=== PATIENT | male | born 1955 | race Caucasian/White ===

== ENCOUNTER 2018-10-06 14:02 | Emergency (ER) | payer MEDICARE, MEDICAID, SELFPAY ==
[2018-10-06] VITALS (10 sets, daily range): BP systolic 106–117; BP diastolic 73–78; PULSE 70–83; RESP 8–18; TEMP 37.1; O2SAT 93–97
--- NOTE | 2018-10-06 14:12 | DI.RAD_ITS ---
SYMPTOM/DIAGNOSIS: LT ANTERIOR RIB PAIN AFTER FALL PA AND LATERAL CHEST, LEFT RIBS: Comparison is made with portable chest dated 05 March 2018. The heart is enlarged, unchanged. An hiatal hernia is again noted. The exam is somewhat limited by patient positioning. A BB marker was placed over the lower left ribs in the area of the patient's pain. No fractures are identified. The lungs are grossly clear. There is no evidence of a pneumothorax. IMPRESSION: No acute abnormality.
--- NOTE | 2018-10-06 14:13 | W.ED.GENAD ---
Discharge Plan Disposition Patient Disposition: HOME Condition: Improving Discharge Details Chief Complaint: Chest Pain Clinical Impression: Chest wall muscle strain Primary Care Provider: Mao Lance ED Provider: Michael Collins Home Meds and New Rx's Prescriptions: Continue propranolol 20 MG tablet 20 mg PO BID Qty: 60 RF: 0 blood sugar diagnostic [OneTouch Ultra Test] 1 EACH strip 1 ea Miscellaneous DAILY Qty: 100 RF: 4 lancets [OneTouch UltraSoft Lancets] 1 EACH misc 1 ea Miscellaneous DAILY Qty: 100 RF: 4 clotrimazole-betamethasone [Lotrisone] 45 GM cream 1 aubrie Topical BID RF: 0 ibuprofen 200 MG tablet 200 mg PO Q6H PRN RF: 0 docusate sodium [Colace] 100 MG capsule 100 mg PO DAILY RF: 0 nystatin (bulk) 1 EACH powder Topical QID Qty: 60 RF: 2 blood-glucose meter [OneTouch Ultra2] 1 EACH kit 1 ea Miscellaneous DAILY Qty: 1 RF: 0 lisinopril 10 MG tablet 0.5 tab PO DAILY Qty: 45 RF: 4 Discharge Instructions Instructions: Muscle Strain (ED) Additional Instructions: Home to rest today. Continue your regular medications. May apply ice to area comfort comfort Return for any other acute Medical Decision Making 63-year-old male presents via EMS from home. He states to me that he was carrying out his trash, slipped on some slippery stairs, did not fall, but subsequent developed brief chest discomfort for which she called EMS. Pain resolved by the time of arrival. Patient's vital signs unremarkable. He has mild reproducible chest wall pain. Differential diagnosis includes strain, rib injury, less likely acute coronary disease. Patient placed on a cardiac exercise physiologist, IV access established, he was referred for chest x-ray and laboratory testing. Diagnostics tests are unremarkable. Patients pain improved and he is without further discomfort. XR without underlying fracture. Will discharge to home. Consistent with mild muscular strain of chest wall. Return precautions discussed. Lab Data Lab results reviewed: Yes I reviewed the patient's lab results. Laboratory Results - last 24 hr 10/06/18 10/06/18 14:28 14:28 WBC 7.38 RBC 4.72 Hgb 15.2 Hct 43.8 MCV 92.8 MCH 32.2 MCHC 34.7 RDW 13.2 Plt Count 204 MPV 9.5 Immature Gran % 0.3 Neutrophils % 62.4 Lymphocytes % 25.7 Monocytes % 9.6 Eosinophils % 1.6 Basophils % 0.4 Absolute Neutrophils 4.60 Absolute Lymphocytes 1.90 Absolute Monocytes 0.71 H Absolute Eosinophils 0.12 Absolute Basophils 0.03 Sodium 138 Potassium 3.8 Chloride 103 Carbon Dioxide 25.2 Anion Gap 9.8 BUN 16 Creatinine 0.85 Estimated GFR/1.73 m2 >= 60.00 Glucose 132 H Calcium 8.9 Total Bilirubin 0.5 AST 21 ALT 40 Alkaline Phosphatase 88 Troponin I < 0.02 Total Protein 7.1 Albumin 3.3 L ECG Data Attestation: I personally reviewed and interpreted this ECG (s) as follows: Interpretation: Normal sinus rhythm, rate of 76, no ST segment elevation HPI General Mode of arrival: EMS. Date/Time Provider Initiated Documentation: 10/06/18 14:03. Limitations to Documentation: no limitations. Information obtained by: patient and EMS. History of Present Illness 63 year old M presents to the emergency department with the chief complaint of Chest pain after slip while carrying trash, described as moderate, Quality is described as aching, and is localized to the chest and left. Patient reports no radiation. Patient started experiencing this minute(s) and it has been now resolved. No relieving factors improve symptom(s), No exacerbating factors reported . Patient notes no other symptoms.. Patient did receive the following treatments prior to arrival, none Related Data Home Medications Medication Instructions Recorded Confirmed propranolol 20 mg PO BID #60 tab-cap 04/23/13 10/06/18 blood sugar diagnostic [OneTouch #100 strip 10/25/15 Ultra Test] lancets [Ostendo TechnologiesTouch UltraSoft #100 ea 10/25/15 Lancets] clotrimazole-betamethasone 1 aubrie TOPICAL BID 02/25/16 12/19/16 [Lotrisone] docusate sodium [Colace] 100 mg PO DAILY 02/25/16 10/06/18 ibuprofen 200 mg PO Q6H PRN 02/25/16 10/06/18 nystatin (bulk) 0 TOPICAL QID #60 g 05/04/17 blood-glucose meter [OneTouch #1 kit 09/13/17 Ultra2] lisinopril 0.5 tab PO DAILY #45 tab 03/07/18 10/06/18 Previous Rx's Medication Instructions Recorded blood-glucose meter [OneTouch #1 kit 09/13/17 Ultra2] lisinopril 0.5 tab PO DAILY #45 tab 03/07/18 Allergies Allergy/AdvReac Type Severity Reaction Status Date / Time venom-honey bee Allergy Intermediate Anaphylaxsi Unverified 05/21/18 14:54 s guaifenesin [From Robitussin] Allergy unknkown Unverified 05/21/18 14:54 influenza virus vaccine, Allergy unknown Unverified 05/21/18 14:54 specific [influenza virus vacc,specific] aspirin AdvReac Intermediate Nausea Unverified 05/21/18 14:54 chlorpheniramine AdvReac Intermediate NAUSEA Unverified 05/21/18 14:54 dextromethorphan AdvReac Intermediate NAUSEA Unverified 05/21/18 14:54 diphenhydramine AdvReac Intermediate NAUSEA Unverified 05/21/18 14:54 phenylephrine AdvReac Intermediate NAUSEA Unverified 05/21/18 14:54 pseudoephedrine AdvReac Intermediate NAUSEA Unverified 05/21/18 14:54 General Stated Complaint: Chest Pain SHONDA: 3 Review of Systems Review of Systems 6 systems reviewed and otherwise negative PFSH Family History Mother Essential hypertension Heart disease Father Diabetes Sister Personal history of malignant neoplasm FAMILY HISTORY Personal history of malignant neoplasm Social History Smoking/Tobacco Use Status: Former Tobacco Use Exam Narrative Exam Narrative: GEN: awake, alert, oriented 3. Pleasant, well groomed, interactive. HEAD: Normocephalic, atraumatic ENT: Mucous membranes moist, oropharynx unremarkable, External ear exam unremarkable EYES: PERRL, EOMI NECK: Full ROM, no LAURENT, no menigismus CHEST/RESP: Minimal tenderness left anterior chest wall to palpation; clear to auscultation bilateral, no wheeze/rhonchi/rales. CARDIOVASCULAR: RRR, no murmur, rub latrice. 2+ Rad pulse bilateral ABDOMEN: Soft, nontender, no mass. +Bowel sounds EXT: Full ROM, no edema, no rash Neuro: Grossly normal neurologic exam, conversant, interactive. Psych: Speech fluent, thoughts congruent, affect normal Course Vital Signs Temperature 37.1 C 10/06/18 14:01 Pulse 70 10/06/18 14:01 Respiratory Rate 14 10/06/18 14:01 Blood Pressure 111/75 10/06/18 14:01 Pulse Oximetry 97 10/06/18 14:01 Temperature 37.1 C 10/06/18 14:01 Temperature Source Temporal Artery Scan 10/06/18 14:01 Pulse 70 10/06/18 14:01 Respiratory Rate 14 10/06/18 14:01 Respiratory Effort 10/06/18 14:04 Blood Pressure 111/75 10/06/18 14:01 Blood Pressure Position Supine 10/06/18 14:01 Pulse Oximetry 97 10/06/18 14:01 Oxygen Delivery Method Room Air 10/06/18 14:01 Oxygen Flow Rate 0 10/06/18 14:01 Pain Level 9 10/06/18 14:01
--- NOTE | 2018-10-06 14:16 | ED.GENADUL_ITS ---
Discharge Plan Disposition Patient Disposition: HOME Condition: Improving Discharge Details Chief Complaint: Chest Pain Clinical Impression: Chest wall muscle strain Primary Care Provider: Mao Lance ED Provider: Michael Collins Home Meds and New Rx's Prescriptions: Continue propranolol 20 MG tablet 20 mg PO BID Qty: 60 RF: 0 blood sugar diagnostic [OneTouch Ultra Test] 1 EACH strip 1 ea Miscellaneous DAILY Qty: 100 RF: 4 lancets [OneTouch UltraSoft Lancets] 1 EACH misc 1 ea Miscellaneous DAILY Qty: 100 RF: 4 clotrimazole-betamethasone [Lotrisone] 45 GM cream 1 aubrie Topical BID RF: 0 ibuprofen 200 MG tablet 200 mg PO Q6H PRN RF: 0 docusate sodium [Colace] 100 MG capsule 100 mg PO DAILY RF: 0 nystatin (bulk) 1 EACH powder Topical QID Qty: 60 RF: 2 blood-glucose meter [OneTouch Ultra2] 1 EACH kit 1 ea Miscellaneous DAILY Qty: 1 RF: 0 lisinopril 10 MG tablet 0.5 tab PO DAILY Qty: 45 RF: 4 Discharge Instructions Instructions: Muscle Strain (ED) Additional Instructions: Home to rest today. Continue your regular medications. May apply ice to area comfort comfort Return for any other acute Medical Decision Making 63-year-old male presents via EMS from home. He states to me that he was carrying out his trash, slipped on some slippery stairs, did not fall, but subsequent developed brief chest discomfort for which she called EMS. Pain resolved by the time of arrival. Patient's vital signs unremarkable. He has mild reproducible chest wall pain. Differential diagnosis includes strain, rib injury, less likely acute coronary disease. Patient placed on a bar tacker, IV access established, he was referred for chest x-ray and laboratory testing. Diagnostics tests are unremarkable. Patients pain improved and he is without further discomfort. XR without underlying fracture. Will discharge to home. Consistent with mild muscular strain of chest wall. Return precautions discussed. Lab Data Lab results reviewed: Yes I reviewed the patient's lab results. Laboratory Results - last 24 hr 10/06/18 10/06/18 14:28 14:28 WBC 7.38 RBC 4.72 Hgb 15.2 Hct 43.8 MCV 92.8 MCH 32.2 MCHC 34.7 RDW 13.2 Plt Count 204 MPV 9.5 Immature Gran % 0.3 Neutrophils % 62.4 Lymphocytes % 25.7 Monocytes % 9.6 Eosinophils % 1.6 Basophils % 0.4 Absolute Neutrophils 4.60 Absolute Lymphocytes 1.90 Absolute Monocytes 0.71 H Absolute Eosinophils 0.12 Absolute Basophils 0.03 Sodium 138 Potassium 3.8 Chloride 103 Carbon Dioxide 25.2 Anion Gap 9.8 BUN 16 Creatinine 0.85 Estimated GFR/1.73 m2 >= 60.00 Glucose 132 H Calcium 8.9 Total Bilirubin 0.5 AST 21 ALT 40 Alkaline Phosphatase 88 Troponin I < 0.02 Total Protein 7.1 Albumin 3.3 L ECG Data Attestation: I personally reviewed and interpreted this ECG (s) as follows: Interpretation: Normal sinus rhythm, rate of 76, no ST segment elevation HPI General Mode of arrival: EMS . Date/Time Provider Initiated Documentation: 10/06/18 14:03 . Limitations to Documentation: no limitations . Information obtained by: patient and EMS . History of Present Illness 63 year old M presents to the emergency department with the chief complaint of Chest pain after slip while carrying trash, described as moderate, Quality is described as aching, and is localized to the chest and left. Patient reports no radiation. Patient started experiencing this minute(s) and it has been now resolved. No relieving factors improve symptom(s), No exacerbating factors reported . Patient notes no other symptoms.. Patient did receive the following treatments prior to arrival, none Related Data Home Medications Medication Instructions Recorded Confirmed propranolol 20 mg PO BID #60 tab-cap 04/23/13 10/06/18 blood sugar diagnostic [OneTouch #100 strip 10/25/15 Ultra Test] lancets [[employer] TechnologyTouch UltraSoft #100 ea 10/25/15 Lancets] clotrimazole-betamethasone 1 aubrie TOPICAL BID 02/25/16 12/19/16 [Lotrisone] docusate sodium [Colace] 100 mg PO DAILY 02/25/16 10/06/18 ibuprofen 200 mg PO Q6H PRN 02/25/16 10/06/18 nystatin (bulk) 0 TOPICAL QID #60 g 05/04/17 blood-glucose meter [OneTouch #1 kit 09/13/17 Ultra2] lisinopril 0.5 tab PO DAILY #45 tab 03/07/18 10/06/18 Previous Rx's Medication Instructions Recorded blood-glucose meter [OneTouch #1 kit 09/13/17 Ultra2] lisinopril 0.5 tab PO DAILY #45 tab 03/07/18 Allergies Allergy/AdvReac Type Severity Reaction Status Date / Time venom-honey bee Allergy Intermediate Anaphylaxsi Unverified 05/21/18 14:54 s guaifenesin [From Robitussin] Allergy unknkown Unverified 05/21/18 14:54 influenza virus vaccine, Allergy unknown Unverified 05/21/18 14:54 specific [influenza virus vacc,specific] aspirin AdvReac Intermediate Nausea Unverified 05/21/18 14:54 chlorpheniramine AdvReac Intermediate NAUSEA Unverified 05/21/18 14:54 dextromethorphan AdvReac Intermediate NAUSEA Unverified 05/21/18 14:54 diphenhydramine AdvReac Intermediate NAUSEA Unverified 05/21/18 14:54 phenylephrine AdvReac Intermediate NAUSEA Unverified 05/21/18 14:54 pseudoephedrine AdvReac Intermediate NAUSEA Unverified 05/21/18 14:54 General Stated Complaint: Chest Pain SHONDA: 3 Review of Systems Review of Systems 6 systems reviewed and otherwise negative PFSH Family History Mother Essential hypertension Heart disease Father Diabetes Sister Personal history of malignant neoplasm FAMILY HISTORY Personal history of malignant neoplasm Social History Smoking/Tobacco Use Status: Former Tobacco Use Exam Narrative Exam Narrative: GEN: awake, alert, oriented 3. Pleasant, well groomed, interactive. HEAD: Normocephalic, atraumatic ENT: Mucous membranes moist, oropharynx unremarkable, External ear exam unremarkable EYES: PERRL, EOMI NECK: Full ROM, no LAURENT, no menigismus CHEST/RESP: Minimal tenderness left anterior chest wall to palpation; clear to auscultation bilateral, no wheeze/rhonchi/rales. CARDIOVASCULAR: RRR, no murmur, rub latrice. 2+ Rad pulse bilateral ABDOMEN: Soft, nontender, no mass. +Bowel sounds EXT: Full ROM, no edema, no rash Neuro: Grossly normal neurologic exam, conversant, interactive. Psych: Speech fluent, thoughts congruent, affect normal Course Vital Signs Temperature 37.1 C 10/06/18 14:01 Pulse 70 10/06/18 14:01 Respiratory Rate 14 10/06/18 14:01 Blood Pressure 111/75 10/06/18 14:01 Pulse Oximetry 97 10/06/18 14:01 Temperature 37.1 C 10/06/18 14:01 Temperature Source Temporal Artery Scan 10/06/18 14:01 Pulse 70 10/06/18 14:01 Respiratory Rate 14 10/06/18 14:01 Respiratory Effort 10/06/18 14:04 Blood Pressure 111/75 10/06/18 14:01 Blood Pressure Position Supine 10/06/18 14:01 Pulse Oximetry 97 10/06/18 14:01 Oxygen Delivery Method Room Air 10/06/18 14:01 Oxygen Flow Rate 0 10/06/18 14:01 Pain Level 9 10/06/18 14:01
[2018-10-06 14:38] LABS: Abs Immature Grans 0.02 k/cumm (0.0-0.09); Absolute Basophil Count 0.03 k/cumm (0.0-0.2); Absolute Eosinophil Count 0.12 k/cumm (0.0-0.7); Absolute Monocyte Count 0.71 k/cumm (0.11-0.7); Basophils % 0.4; Eosinophils % 1.6; HCT 43.8 % (40.0-50.0); HGB 15.2 g/dL (13.5-17.5); Immature Grans % 0.3; Lymphocytes % 25.7; Mean Corp. HGB Concentration 34.7 g/dL (32.0-36.0); Mean Corpuscular Hemoglobin 32.2 pg (27.0-33.0); Mean Corpuscular Volume 92.8 fL (80-95); Mean Platelet Volume 9.5 fL (8.0-11.0); Monocytes % 9.6; Neutrophils % 62.4; Platelet Count 204 x1000/uL (130-400); RBC 4.72 m/cumm (4.50-6.00); RBC Distribution Width 13.2 % (11.8-14.1); White Blood Cell Count 7.38 k/cumm (4.4-10.8)
[2018-10-06 14:51] LABS: ALT 40 U/L (12-78); AST 21 U/L (15-37); Albumin 3.3 g/dL (3.4-5.0); Alkaline Phosphatase 88 U/L (46-116); Anion Gap 9.8 mmol/L (3-11); BUN 16 mg/dL (7-18); Bilirubin, Total 0.5 mg/dL (0.2-1.0); CO2 25.2 mmol/L (21.0-32.0); CREATININE 0.85 mg/dL (0.70-1.30); Calcium 8.9 mg/dL (8.5-10.1); Chloride 103 mmol/L (98-107); Glucose 132 mg/dL (70-100); Potassium 3.8 mmol/L (3.5-5.1); Sodium 138 mmol/L (136-145); Total Protein 7.1 g/dL (6.4-8.2)
[2018-10-06 14:52] LABS: Troponin I < 0.02 ng/mL (0.00-0.06)
--- NOTE | 2018-10-06 15:12 | DI.VRAD_ITS ---
EXAM: XR Left Ribs, 2 Views EXAM DATE/TIME: 10/06/2018 2:14 PM CLINICAL HISTORY: 63 years old, male; Pain; Other: Anterior rib; Chest wall pain; Left; Patient HX: Per PT: Fell down 2 stairs; L anterior lower rib pain TECHNIQUE: XR Left ribs 2 views. COMPARISON: [facility] PORTABLE CHEST ONE VIEW 03/05/2018 4:35 PM FINDINGS: No displaced rib fractures. No evidence of pneumothorax. Left costophrenic angle sharp. IMPRESSION: Unremarkable exam. EXAM: XR Chest, 2 Views EXAM DATE/TIME: 10/06/2018 2:14 PM CLINICAL HISTORY: 63 years old, male; Pain; Other: Anterior rib; Chest wall pain; Left; Patient HX: Per PT: Fell down 2 stairs; L anterior lower rib pain TECHNIQUE: XR of the chest, 2 views. COMPARISON: [facility] PORTABLE CHEST ONE VIEW 03/05/2018 4:35 PM FINDINGS: Mild cardiomegaly. Tortuous thoracic aorta. No evidence of pneumothorax. Right-sided rotator cuff disease. IMPRESSION: No evidence of acute cardiopulmonary disease. Dictated and Authenticated by: Steve Rudd MD. Ordering:PATRIZIA JEAN MD
== END 2018-10-06 15:43 | disposition home or self-care (01) ==
LOC: ER 15:47
PROVIDERS: Emergency Provider Emergency Medicine; PCP Family Medicine
DX: S29.011A Strain of muscle and tendon of front wall of thorax, initial encounter (principal); X50.9XXA Other and unspecified overexertion or strenuous movements or postures, initial encounter; E11.9 Type 2 diabetes mellitus without complications; I10 Essential (primary) hypertension
CPT/HCPCS: 36415; 80053; 93005; 99284; 71046; 71100; 84484; 85025; 93010

== ENCOUNTER 2018-12-19 09:50 | Outpatient (CLI) | payer MEDICARE, MEDICAID, SELFPAY ==
[2018-12-19 12:09] LABS: Hemoglobin A1C 7.1 % (4.5-6.2)
== END 2018-12-19 10:10 ==
PROVIDERS: PCP Family Medicine; Visit Provider Family Medicine
DX: E11.9 Type 2 diabetes mellitus without complications (principal)
CPT/HCPCS: 36415; 83036

== ENCOUNTER 2019-05-27 10:02 | Outpatient (CLI) | payer MEDICARE, MEDICAID, SELFPAY ==
[2019-05-27 10:49] LABS: Anion Gap 8.8 mmol/L (3-11); BUN 15 mg/dL (7-18); CO2 28.2 mmol/L (21.0-32.0); CREATININE 0.77 mg/dL (0.70-1.30); Calcium 9.1 mg/dL (8.5-10.1); Chloride 105 mmol/L (98-107); Glucose 172 mg/dL (70-100); Sodium 142 mmol/L (136-145)
== END 2019-05-27 10:22 ==
PROVIDERS: PCP Family Medicine; Visit Provider Family Medicine
DX: R63.1 Polydipsia (principal)
CPT/HCPCS: 36415; 80048

== ENCOUNTER 2019-08-10 16:35 | Emergency (ER) | payer MEDICARE, MEDICAID, SELFPAY ==
[2019-08-10] VITALS (18 sets, daily range): BP systolic 89–125; BP diastolic 58–63; PULSE 78–92; RESP 17–34; TEMP 36.9–37; O2SAT 95–98
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
[2019-08-10] MEDS: Normal Saline 1,000 ML 150 ML IV (17:00)
[2019-08-10] MEDS: Normal Saline Flush 10 ML SYR IVP (17:00)
[2019-08-10 17:12] LABS: Abs Immature Grans 0.03 k/cumm (0.0-0.09); Absolute Basophil Count 0.03 k/cumm (0.0-0.2); Absolute Eosinophil Count 0.16 k/cumm (0.0-0.7); Absolute Monocyte Count 0.69 k/cumm (0.11-0.7); Absolute Neutrophil Count 4.66 k/cumm (1.2-6.7); Basophils % 0.4; Eosinophils % 2.1; HCT 43.3 % (40.0-50.0); HGB 14.7 g/dL (13.5-17.5); Immature Grans % 0.4; Lymphocytes % 28.3; Mean Corp. HGB Concentration 33.9 g/dL (32.0-36.0); Mean Corpuscular Hemoglobin 31.7 pg (27.0-33.0); Mean Corpuscular Volume 93.3 fL (80-95); Mean Platelet Volume 9.4 fL (8.0-11.0); Monocytes % 8.9; Neutrophils % 59.9; Platelet Count 230 x1000/uL (130-400); RBC 4.64 m/cumm (4.50-6.00); RBC Distribution Width 13.4 % (11.8-14.1); White Blood Cell Count 7.77 k/cumm (4.4-10.8)
[2019-08-10 17:28] LABS: ALT 41 U/L (16-63); AST 24 U/L (15-37); Albumin 3.5 g/dL (3.4-5.0); Alkaline Phosphatase 85 U/L (46-116); Anion Gap 11.4 mmol/L (3-11); BUN 15 mg/dL (7-18); Bilirubin, Total 0.6 mg/dL (0.2-1.0); CO2 27.6 mmol/L (21.0-32.0); CREATININE 0.99 mg/dL (0.70-1.30); Calcium 8.9 mg/dL (8.5-10.1); Chloride 101 mmol/L (98-107); Glucose 188 mg/dL (70-100); Magnesium 1.7 mg/dL (1.8-2.4); Potassium 3.6 mmol/L (3.5-5.1); Sodium 140 mmol/L (136-145); Total Protein 7.3 g/dL (6.4-8.2)
[2019-08-10 17:29] LABS: Troponin I < 0.05 ng/mL (0.00-0.06)
--- NOTE | 2019-08-10 17:40 | DI.CT_ITS ---
EXAM: CT HEAD WO CLINICAL HISTORY: ? passed out. TECHNIQUE: Imaging Protocol: Axial computed tomography images with coronal and sagittal reformatted images were created and reviewed COMPARISON: ABD PELVIS WITH CONTRAST from 08/03/2016 FINDINGS: Ventricles and Extra axial spaces: Normal in size and morphology for the patient's age. Hemorrhage: None. Cerebral parenchyma: Normal. Midline shift: None. Brainstem/Cerebellum: Normal. Calvarium: Normal. Visualized Paranasal sinuses/Mastoids: Clear. IMPRESSION: Normal CT of the head. DATA REPOSITORY: All CT scans at this facility are submitted to the National Radiology Data Registry (NRDR) Dose Index Registry (DIR) with the [employer] (ACR). RADIATION OPTIMIZATION: All CT scans at this facility use at least one of these dose optimization te chniques: automated exposure control; mA and/or kV adjustment per patient size (includes targeted exa ms where dose is matched to clinical indication); or iterative reconstruction.
--- NOTE | 2019-08-10 17:50 | DI.RAD_ITS ---
EXAM: XR CHEST 2V PA LATERAL CLINICAL HISTORY: ? syncope?. TECHNIQUE: 2D digital imaging was performed. COMPARISON: XR ribs LT w PA lat chest from 10/06/2018 FINDINGS: LUNGS: When compared to the prior examination there are increased lung markings in the bases bilatera lly. No focal consolidating infiltrates are present. No pleural effusion or pneumothorax is identif ied. HEART: Cardiomegaly. The pulmonary vasculature is within normal limits. MEDIASTINUM: Normal. OTHER FINDINGS:There is patient motion artifact on the lateral view. Bones: No acute osseous abnormalities present. IMPRESSION: New bilateral basilar interstitial infiltrates. This may represent pulmonary edema, infection, or ch ronic fibrosis.
--- NOTE | 2019-08-10 18:01 | DI.VRAD_ITS ---
PROCEDURE INFORMATION: Exam: CT Head without contrast Exam date and time: 08/10/2019 5:30 PM Clinical history: 63 years old, male; Other: ? Passed out TECHNIQUE: Imaging protocol: Computed tomography of the head without contrast. Radiation optimization: All CT scans at this facility use at least one of these dose optimization techniques: automated exposure control; mA and/or kV adjustment per patient size (includes targeted exams where dose is matched to clinical indication); or iterative reconstruction. COMPARISON: No relevant prior studies available. FINDINGS: Brain: Normal. No hemorrhage. Unremarkable white matter. No mass effect. Ventricles: Normal. No ventriculomegaly. Bones/joints: Unremarkable. No acute fracture. Sinuses: Visualized sinuses are unremarkable. No fluid levels. Mastoid air cells: Visualized mastoid air cells are well aerated. Soft tissues: Unremarkable. IMPRESSION: No acute intracranial abnormality. Dictated and Authenticated by: Theron Fregoso MD. Ordering:PATRIZIA Rodriguez MD
--- NOTE | 2019-08-10 18:02 | DI.VRAD_ITS ---
PROCEDURE INFORMATION: Exam: XR Chest, 2 Views Exam date and time: 08/10/2019 5:37 PM Clinical history: 63 years old, male; Other: ? Syncope? TECHNIQUE: Imaging protocol: XR of the chest Views: 2 views. COMPARISON: SC PORTABLE CHEST ONE VIEW 03/05/2018 4:35 PM FINDINGS: Lungs: Increased interstitial lung markings suggesting edema, infection or fibrotic changes. Pleural space: Unremarkable. No pleural effusion. No pneumothorax. Heart/Mediastinum: Cardiomegaly. Bones/joints: Unremarkable. IMPRESSION: Increased interstitial lung markings suggesting edema, infection or fibrotic changes. Cardiomegaly. Dictated and Authenticated by: Theron Fregoso MD. Ordering:PATRIZIA Rodriguez MD
[2019-08-10 18:34] LABS: NT-proBNP 42 pg/mL
--- NOTE | 2019-08-10 18:44 | NUR.NOTE ---
pt provided with meal tray Nursing Note:
--- NOTE | 2019-08-10 18:50 | NUR.NOTE ---
pt unsure of meds but states they're all the same Nursing Note:
== END 2019-08-10 19:00 | disposition home or self-care (01) ==
PROVIDERS: Emergency Provider Emergency Medicine; PCP Family Medicine
DX: F44.1 Dissociative fugue (principal); I10 Essential (primary) hypertension; E11.42 Type 2 diabetes mellitus with diabetic polyneuropathy
CPT/HCPCS: 36415; 36416; 80053; 82962; 93005; 96360; 96361; 99285; 70450; 71046; 83735; 83880; 84484; 85025; 93010; 99284

== ENCOUNTER 2019-12-09 15:04 | Outpatient (CLI) | payer MEDICARE, MEDICAID, SELFPAY ==
--- NOTE | 2019-12-09 15:26 | DI.RAD_ITS ---
EXAM: XR KNEE RT 3V AP,LAT,MONIKA INDICATION: FELL ON RIGHT KNEE 1 WEEK AGO, S89.91XA INJURY RT LOWER LEG. COMPARISON: No exams were available for comparison TECHNIQUE: 2D digital imaging was performed. FINDINGS: The femorotibial joint spaces are well maintained. There is mild periarticular spurring. There is s ome spurring and irregularity at the articular aspect of the patella. The patella appears normally p ositioned. No joint effusion is seen. IMPRESSION: Mild degenerative changes, greatest at the patellofemoral joint.
== END 2019-12-09 15:24 ==
PROVIDERS: PCP Family Medicine; Visit Provider Family Medicine
DX: M25.561 Pain in right knee (principal); S89.91XA Unspecified injury of right lower leg, initial encounter; M17.11 Unilateral primary osteoarthritis, right knee; W19.XXXA Unspecified fall, initial encounter
CPT/HCPCS: 73562

== ENCOUNTER 2020-08-20 13:39 | Emergency (ER) | payer MEDICARE, MEDICAID, SELFPAY ==
[2020-08-20] VITALS (35 sets, daily range): BP systolic 89–178; BP diastolic 62–135; PULSE 80–159; RESP 11–24; TEMP 36.4; O2SAT 95–100
--- NOTE | 2020-08-20 13:30 | RT.EKG_ITS ---
APPROVED REPORT Exam: Resting ECG Patient Location: E HR:83 bpm ECG Measurements Heart Rate 83 AXIS IL 189 P 20 QRSd 83 QRS 14 QT 364 T 34 QTc 428 Conclusion Sinus rhythm...normal P axis, V-rate 60- 99 Low voltage, precordial leads...precordial leads <1.0mV I have reviewed and interpreted ECG and agree with software generated interpretation.
--- NOTE | 2020-08-20 13:45 | DI.CT_ITS ---
EXAM: CT ABDOMEN PELVIS W CLINICAL HISTORY: RLQ abd pain, diarrhea, weakness,r/o acute process TECHNIQUE: COMPARISON: CT ABD PELVIS WITH CONTRAST from 08/16/2017 FINDINGS: CT examination of the abdomen and pelvis was performed with bolus infusion of 100 cc of Omnipaque 350 . Images obtained through the lung bases are unremarkable. The liver and spleen appear normal. Gallbladder has been surgically removed. No biliary dilatation seen.. Pancreas is unremarkable in appearance. Adrenals appear normal bilaterally. Kidneys appear normal except for small bilateral incidental renal cysts. No nephrolithiasis or hydronephrosis. No ureterolithiasis. There is no evidence of abdominal or pelvic adenopathy. Abdominal aorta is of normal diameter and no major vascular abnormality is seen. Appendix is normal. No evidence diverticulitis or bowel obstruction. No significant abdominal wall hernia seen. Prostate is enlarged and calcified. Urinary bladder unremarkable. Impression: Negative examination of the abdomen and pelvis. RADIATION DOSE DELIVERED: 1,748.39mGy.cm Total DLP 1,748.39mGy.cm Total DLP DATA REPOSITORY: All CT scans at this facility are submitted to the National Radiology Data Registry (NRDR) Dose Index Registry (DIR) with the [employer] (ACR). RADIATION OPTIMIZATION: All CT scans at this facility use at least one of these dose optimization te chniques: automated exposure control; mA and/or kV adjustment per patient size (includes targeted exa ms where dose is matched to clinical indication); or iterative reconstruction.
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
[2020-08-20 14:24] LABS: Abs Immature Grans 0.02 10^3/uL (0.0-0.06); Absolute Basophil Count 0.06 10^3/uL (0.0-0.2); Absolute Lymphocyte Count 1.65 10^3/uL (1.2-3.4); Absolute Monocyte Count 0.59 10^3/uL (0.1-0.8); Absolute Neutrophil Count 4.31 10^3/uL (1.2-6.7); Basophils % 0.9; Eosinophils % 2.9; HCT 45.4 % (40.0-50.0); Immature Grans % 0.3; Lactate 2.3 mmol/L (0.6-1.4); Lymphocytes % 24.2; MCH 30.9 pg (27.0-33.0); MCV 93.6 fL (80-95); MPV 9.5 fL (8.0-11.0); Monocytes % 8.6; Neutrophils % 63.1; Nucleated RBC 0 %; Platelet Count 239 10^3/uL (130-400); RBC 4.85 10^6/uL (4.36-5.78); RDW 13.2 % (11.8-14.1); RDW-SD 45.2 fL; WBC 6.83 10^3/uL (4.4-10.8)
[2020-08-20 14:34] LABS: INR 1.1 (0.9-1.1); Prothrombin Time 10.6 sec (9.3-11.0)
[2020-08-20 14:45] LABS: ALT 40 U/L (16-63); AST 27 U/L (15-37); Albumin 3.1 g/dL (3.4-5.0); Alkaline Phosphatase 96 U/L (46-116); Anion Gap 7.5 mmol/L (3-11); BUN 14 mg/dL (7-18); Bilirubin, Total 0.5 mg/dL (0.2-1.0); CO2 29.5 mmol/L (21.0-32.0); CREATININE 0.89 mg/dL (0.70-1.30); Calcium 9.4 mg/dL (8.5-10.1); Chloride 103 mmol/L (98-107); Glucose 194 mg/dL (74-106); Magnesium 1.9 mg/dL (1.8-2.4); Potassium 4.1 mmol/L (3.5-5.1); Sodium 140 mmol/L (136-145); Total Protein 6.7 g/dL (6.4-8.2); Troponin I < 0.05 ng/mL (<0.06)
[2020-08-20] MEDS: Normal Saline 250 ML IV ×2 (14:52→15:15)
[2020-08-20] MEDS: Normal Saline - Diluent 50 ML VIAL IV (15:35)
--- NOTE | 2020-08-20 15:58 | DI.RAD_ITS ---
EXAM: XR KNEE RT 4V AP,LAT,MONIKA,PAT CLINICAL HISTORY: fall onto R knee, r/o acute fx. TECHNIQUE: 2D digital imaging was performed. COMPARISON: No exams were available for comparison FINDINGS: BONES: There appears to be a deformity of the posterior medial aspect of the patella on the sunrise v iew and nondisplaced fracture cannot be excluded. No bony destructive lesion is seen. Small spurs ar e seen at the posterior patella. JOINTS: The knee is normally aligned. No joint effusion is seen. SOFT TISSUE: Normal. IMPRESSION: Question of a nondisplaced fracture of the posterior medial aspect of the patella as seen on the sunr ise view. A nondisplaced fracture cannot be excluded. Please correlate clinically. DATA REPOSITORY: RADIATION DOSE DELIVERED:
[2020-08-20 16:15] LABS: Bilirubin Negative (Negative); Blood Trace-intact (Negative); Clarity Clear (Clear); Glucose Negative (Negative); Ketones Negative (Negative); Leukocyte Esterase Negative (Negative); Nitrite Negative (Negative); Specific Gravity 1.015 (1.005-1.025); Urobilinogen 0.2 EU/dL (Up TO 0.2); pH 6.5 (5-8)
[2020-08-20 16:34] LABS: Bacteria Negative HPF (Negative); C & S Indicated? No; Crystals Negative HPF (Negative); Epithelial Cells Few HPF (Negative); Mucus Moderate (Negative); WBC Negative HPF (0-5)
[2020-08-20 17:47] LABS: Lactate 1.7 mmol/L (0.6-1.4)
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
== END 2020-08-20 18:45 | disposition home or self-care (01) ==
PROVIDERS: Emergency Provider Physician Assistant; PCP Nurse Practitioner
DX: S80.01XA Contusion of right knee, initial encounter (principal); W19.XXXA Unspecified fall, initial encounter; R53.1 Weakness; R19.7 Diarrhea, unspecified; R10.31 Right lower quadrant pain; E11.9 Type 2 diabetes mellitus without complications; Z79.84 Long term (current) use of oral hypoglycemic drugs; I10 Essential (primary) hypertension
CPT/HCPCS: 36415; 80053; 93005; 96360; 96361; 99285; 73564; 74177; 81003; 81015; 83605; 83735; 84484; 85025; 85610; 85730; 93010

== ENCOUNTER 2020-12-29 03:09 | Outpatient (CLI) | payer MEDICARE, MEDICAID, SELFPAY ==
[2020-12-29 14:47] LABS: COMMENT (LAB VIEW ONLY) 60.56 mg/dL; Microalb ug/mg Crea 3.6 ug/mg Cr
[2020-12-29 14:54] LABS: Cholesterol 217 mg/dL (<200); HDL Cholesterol 30 mg/dL (40-60); Triglyceride 443 mg/dL (<150)
[2020-12-29 15:05] LABS: LDL CHOLESTEROL 139 mg/dL (<100)
[2020-12-29 22:07] LABS: PSA, Screening 0.7 ng/mL (0.0-4.5)
== END 2020-12-29 03:10 | disposition home or self-care (01) ==
LOC: LBO 03:09
PROVIDERS: PCP Nurse Practitioner; Visit Provider Nurse Practitioner
DX: E11.9 Type 2 diabetes mellitus without complications (principal); R32 Unspecified urinary incontinence; Z12.5 Encounter for screening for malignant neoplasm of prostate; Z13.6 Encounter for screening for cardiovascular disorders
CPT/HCPCS: 36415; 80061; 83721; 84153; 82043; 82570

== ENCOUNTER 2021-06-13 14:14 | Outpatient (REF) | payer MEDICARE, MEDICAID, SELFPAY ==
[2021-06-13 17:26] LABS: Potassium 3.7 mmol/L (3.5-5.1)
[2021-06-13 17:49] LABS: Calculated LDL 49 mg/dL (<100); Cholesterol 125 mg/dL (<200); HDL Cholesterol 29 mg/dL (40-60); Triglyceride 238 mg/dL (<150)
--- NOTE | 2021-07-02 16:32 | W.ED.FU ---
Date of service: 07/02/21 Time of Service: 10:32 Follow Up Plan: I was contacted by ever in regards to the patient. The patient had complained of lightheadedness and dizziness and called EMS. EMS upon arrival recommended transfer to the ER, however patient had refused. Patient per EMS was of sound mind to make the decision and showed no signs of intoxication or altered mental status per EMS. I did discuss and asked the EM that the patient know that we are happy to evaluate him anytime here in the ED, the still refused transport
== END 2021-06-13 14:15 | disposition home or self-care (01) ==
LOC: LBN 14:14
PROVIDERS: PCP Nurse Practitioner; Visit Provider Nurse Practitioner
DX: E11.9 Type 2 diabetes mellitus without complications (principal)
CPT/HCPCS: 80061; 82565; 84132

== ENCOUNTER 2022-05-13 15:37 | Emergency (ER) | payer MEDICARE, MEDICAID, SELFPAY ==
[2022-05-13 15:23] VITALS: BP 132/73; PULSE 73; TEMP 36.3; O2SAT 98
--- NOTE | 2022-05-13 15:30 | RT.EKG_ITS ---
APPROVED REPORT Exam: Resting ECG Reason for Exam: Dizzy Patient Location: E HR:72 bpm ECG Measurements Heart Rate 72 AXIS KS 204 P 12 QRSd 84 QRS 19 QT 388 T 34 QTc 425 Conclusion Sinus rhythm...normal P axis, V-rate 60- 99
[2022-05-13 15:31] VITALS: BP 119/71; PULSE 75; RESP 24; TEMP 36.5; O2SAT 98
[2022-05-13 15:38] VITALS: RESP 24
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
[2022-05-13 15:52] LABS: Abs Immature Grans 0.04 10^3/uL (0.0-0.06); Absolute Basophil Count 0.07 10^3/uL (0.0-0.2); Absolute Eosinophil Count 0.19 10^3/uL (0.0-0.7); Absolute Lymphocyte Count 2.58 10^3/uL (1.2-3.4); Absolute Monocyte Count 0.74 10^3/uL (0.1-0.8); Basophils % 0.7; HCT 43.8 % (40.0-50.0); HGB 14.5 g/dL (13.5-17.5); Immature Grans % 0.4; Lymphocytes % 26.8; MCH 31.4 pg (27.0-33.0); MCHC 33.1 % (32.0-36.0); MCV 95 fL (80-95); MPV 9.9 fL (8.0-11.0); Monocytes % 7.7; Neutrophils % 62.4; Platelet Count 231 10^3/uL (130-400); RBC 4.62 10^6/uL (4.36-5.78); RDW 13.2 % (11.8-14.1); RDW-SD 46.3 fL; WBC 9.62 10^3/uL (4.4-10.8)
[2022-05-13 16:09] LABS: ALT 26 U/L (16-63); AST 15 U/L (15-37); Albumin 2.9 g/dL (3.4-5.0); Alkaline Phosphatase 100 U/L (46-116); Anion Gap 7.1 mmol/L (3-11); BUN 18 mg/dL (7-18); Bilirubin, Total 0.3 mg/dL (0.2-1.0); CO2 26.9 mmol/L (21.0-32.0); CREATININE 0.9 mg/dL (0.70-1.30); Calcium 7.8 mg/dL (8.5-10.1); Chloride 105 mmol/L (98-107); Glucose 169 mg/dL (74-106); Magnesium 1.6 mg/dL (1.8-2.4); Potassium 3.6 mmol/L (3.5-5.1); Sodium 139 mmol/L (136-145); Total Protein 6.3 g/dL (6.4-8.2); Troponin I < 50 ng/L (<or=60)
[2022-05-13] MEDS: Magnesium Oxide 400 MG TAB 800 MG PO (16:57)
[2022-05-13 17:03] VITALS: BP 112/60; PULSE 93; RESP 22; TEMP 36.1; O2SAT 98
== END 2022-05-13 17:14 | disposition home or self-care (01) ==
LOC: ER 17:16
PROVIDERS: Emergency Provider Emergency Medicine; PCP Nurse Practitioner
DX: G89.11 Acute pain due to trauma (principal); M54.50 Low back pain, unspecified; E83.42 Hypomagnesemia; I10 Essential (primary) hypertension; Z87.891 Personal history of nicotine dependence; X50.0XXA Overexertion from strenuous movement or load, initial encounter
CPT/HCPCS: 80053; 93005; 99283; 83735; 84484; 85025; 93010; 99282

== ENCOUNTER 2022-07-15 10:51 | Emergency (ER) | payer MEDICARE, MEDICAID, SELFPAY ==
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
[2022-07-15] MEDS: Cephalexin 500 MG CAP, 2 CAPS/BTL PO (11:31)
[2022-07-15] MEDS: Nystatin CREAM 30 GM TUBE TP (11:31)
--- NOTE | 2022-07-15 13:35 | NUR.NOTE ---
Nursing Note: Referral faxed to PCP for cellulitis, infection, in 1 week.
== END 2022-07-15 11:29 | disposition home or self-care (01) ==
PROVIDERS: Emergency Provider Emergency Medicine; PCP Nurse Practitioner
DX: L03.111 Cellulitis of right axilla (principal); I10 Essential (primary) hypertension; E11.9 Type 2 diabetes mellitus without complications; Z79.84 Long term (current) use of oral hypoglycemic drugs; Z87.891 Personal history of nicotine dependence
CPT/HCPCS: 99283; 99284

== ENCOUNTER 2023-07-26 15:58 | Emergency (ER) | payer MEDICARE, MEDICAID, SELFPAY ==
[2023-07-26 15:53] VITALS: BP 136/82; PULSE 80; RESP 18; TEMP 36.4
[2023-07-26] MEDS: Insulin REGULAR-Human 100 UNITS/ML UNIT 8 UNITS SC (16:27)
[2023-07-26] MEDS: Pantoprazole 40 MG VIAL IVP (16:27)
[2023-07-26] MEDS: Sucralfate 1 GM TAB PO (16:28)
[2023-07-26] MEDS: Normal Saline 500 ML IV (16:28)
[2023-07-26 16:34] LABS: BE (Venous) 0 mmol/L (-2-3); HCO3 (Venous) 26 mmol/L (23-28); O2 Sat (Venous) 86 %; TCO2 (Venous) 23 mmol/L (24-29); pCO2 (Venous) 45 mmHg (41-51); pH (Venous) 7.36 (7.31-7.41); pO2 (Venous) 50 mmHg
[2023-07-26 16:37] LABS: Abs Immature Grans 0.02 10^3/uL (0.0-0.06); Absolute Basophil Count 0.07 10^3/uL (0.0-0.2); Absolute Eosinophil Count 0.17 10^3/uL (0.0-0.7); Absolute Lymphocyte Count 1.91 10^3/uL (1.2-3.4); Absolute Monocyte Count 0.66 10^3/uL (0.1-0.8); Absolute Neutrophil Count 4.23 10^3/uL (1.2-6.7); Eosinophils % 2.4; HCT 43.1 % (40.0-50.0); HGB 14.6 g/dL (13.5-17.5); Immature Grans % 0.3; Lymphocytes % 27.1; MCH 31.4 pg (27.0-33.0); MCHC 33.9 % (32.0-36.0); MCV 93 fL (80-95); MPV 9.3 fL (8.0-11.0); Monocytes % 9.3; Neutrophils % 59.9; Platelet Count 222 10^3/uL (130-400); RBC 4.65 10^6/uL (4.36-5.78); RDW 13.1 % (11.8-14.1); RDW-SD 44.4 fL; WBC 7.06 10^3/uL (4.4-10.8)
[2023-07-26 16:51] LABS: ALT 37 U/L (16-63); AST 19 U/L (15-37); Alkaline Phosphatase 116 U/L (46-116); Anion Gap 8.4 mmol/L (3-11); BUN 13 mg/dL (7-18); Bilirubin, Total 0.3 mg/dL (0.2-1.0); CO2 26.6 mmol/L (21.0-32.0); Calcium 8.8 mg/dL (8.5-10.1); Chloride 100 mmol/L (98-107); Estimated GFR 82.49 (mL/min/1.73m2); Glucose 284 mg/dL (74-106); Lipase 46 U/L (16-77); PTT Activated 22.5 sec (21.5-31.9); Potassium 4.1 mmol/L (3.5-5.1); Prothrombin Time 9.9 sec (9.3-11.0); Sodium 135 mmol/L (136-145); Total Protein 6.8 g/dL (6.4-8.2)
[2023-07-26 16:55] LABS: Bilirubin Negative (Negative); Blood Negative (Negative); Clarity Clear (Clear); Glucose 500 mg/dL (Negative); Ketones Trace mg/dL (Negative); Leukocyte Esterase Negative (Negative); Nitrite Negative (Negative); Urobilinogen 0.2 mg/dL (Up to 0.2); pH 6.5 (5-8)
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
[2023-07-26 17:15] VITALS: BP 123/97; PULSE 80; RESP 18
== END 2023-07-26 18:00 | disposition home or self-care (01) ==
PROVIDERS: Emergency Provider Student in an Organized Health Care Education/Training Program; PCP Nurse Practitioner Family
DX: E11.65 Type 2 diabetes mellitus with hyperglycemia (principal); I10 Essential (primary) hypertension; Z79.84 Long term (current) use of oral hypoglycemic drugs; E11.42 Type 2 diabetes mellitus with diabetic polyneuropathy
CPT/HCPCS: 80053; 82805; 82962; 83690; 86850; 86900; 86901; 96374; 99283; 81003; 85025; 85610; 85730; 99282

== ENCOUNTER 2023-08-08 14:01 | Inpatient (IN) | payer MEDICARE, MEDICAID, SELFPAY ==
--- NOTE | 2023-08-08 14:00 | RT.EKG_ITS ---
APPROVED REPORT Exam: Resting ECG Reason for Exam: syncope Patient Location: E HR:82 bpm ECG Measurements Heart Rate 82 AXIS DC 190 P -9 QRSd 81 QRS 30 QT 371 T 53 QTc 435 Conclusion Sinus rhythm.. V-rate 60- [address] segment or T wave abnormalities to suggest occlusive DC
--- NOTE | 2023-08-08 14:00 | DI.CT_ITS ---
Exam(s) CT HEAD WO EXAM: CT HEAD WO CLINICAL HISTORY: syncope. TECHNIQUE: Imaging Protocol: Axial computed tomography images with coronal and sagittal reformatted images were created and reviewed COMPARISON: CT CT HEAD WO from 08/10/2019 FINDINGS: Ventricles and Extra axial spaces: Normal in size and morphology for the patient's age. Hemorrhage: None. Cerebral parenchyma: Normal. There is no mass effect. Midline shift: None. Brainstem/Cerebellum: Normal. Calvarium: Normal. Visualized Paranasal sinuses/Mastoids: There is a mucous retention cyst or polyp in the right maxilla ry sinus. Soft Tissues: Unremarkable. IMPRESSION: 1. No acute intracranial process. 2. Findings were discussed with the emergency department at 3:35 p.m. on 08/08/2023. 3. If symptoms persist, an MRI may be considered for further evaluation. RADIATION DOSE DELIVERED: 917.01mGy.cm Total DLP DATA REPOSITORY: All CT scans at this facility are submitted to the National Radiology Data Registry (NRDR) Dose Index Registry (DIR) with the [employer] (A[employer]). RADIATION OPTIMIZATION: All CT scans at this facility use at least one of these dose optimization te chniques: automated exposure control; mA and/or kV adjustment per patient size (includes targeted exa ms where dose is matched to clinical indication); or iterative reconstruction.
[2023-08-08 14:03] VITALS: BP 129/77; PULSE 85; RESP 18; TEMP 36.8; O2SAT 100
[2023-08-08 14:36] VITALS: RESP 18
[2023-08-08 14:42] LABS: Abs Immature Grans 0.03 10^3/uL (0.0-0.06); Absolute Basophil Count 0.04 10^3/uL (0.0-0.2); Absolute Eosinophil Count 0.19 10^3/uL (0.0-0.7); Absolute Lymphocyte Count 1.57 10^3/uL (1.2-3.4); Absolute Monocyte Count 0.54 10^3/uL (0.1-0.8); Absolute Neutrophil Count 4.77 10^3/uL (1.2-6.7); Basophils % 0.6; Eosinophils % 2.7; HCT 44.5 % (40.0-50.0); HGB 14.9 g/dL (13.5-17.5); Immature Grans % 0.4; MCH 31.2 pg (27.0-33.0); MCHC 33.5 % (32.0-36.0); MCV 93 fL (80-95); MPV 9.5 fL (8.0-11.0); Monocytes % 7.6; Neutrophils % 66.7; Platelet Count 193 10^3/uL (130-400); RBC 4.77 10^6/uL (4.36-5.78); RDW 13.2 % (11.8-14.1); RDW-SD 44.9 fL; WBC 7.14 10^3/uL (4.4-10.8)
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
[2023-08-08 15:10] LABS: ALT 36 U/L (16-63); AST 17 U/L (15-37); Albumin 3.2 g/dL (3.4-5.0); Alkaline Phosphatase 124 U/L (46-116); Anion Gap 9.5 mmol/L (3-11); BUN 14 mg/dL (7-18); Bilirubin, Total 0.3 mg/dL (0.2-1.0); CO2 26.5 mmol/L (21.0-32.0); Calcium 9.2 mg/dL (8.5-10.1); Chloride 100 mmol/L (98-107); Estimated GFR 82.49 (mL/min/1.73m2); Glucose 367 mg/dL (74-106); Magnesium 1.8 mg/dL (1.8-2.4); Potassium 4.4 mmol/L (3.5-5.1); Sodium 136 mmol/L (136-145); Total Protein 7.2 g/dL (6.4-8.2); Troponin I < 50 ng/L (<or=60)
[2023-08-08 15:34] LABS: D-Dimer 340 ng/mlFEU (<500)
[2023-08-08 15:55] LABS: PTT Activated 25.7 sec (21.5-31.9)
[2023-08-08 16:30] LABS: Source Nasal/Nares
[2023-08-08 17:03] LABS: COVID-19 PCR Negative (Negative)
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
[2023-08-08 18:07] VITALS: BP 125/85; PULSE 69; RESP 20; TEMP 36.3; O2SAT 95
[2023-08-08 18:22] VITALS: BP 125/85; PULSE 69; RESP 18; TEMP 36.3; O2SAT 95
[2023-08-08] MEDS: Insulin Aspart 300 UNITS/3 ML PEN SC (19:31)
[2023-08-08 19:42] LABS: Bilirubin Negative (Negative); Blood Trace-intact (Negative); Clarity Clear (Clear); Glucose 500 mg/dL (Negative); Ketones Negative (Negative); Leukocyte Esterase Negative (Negative); Nitrite Negative (Negative); Specific Gravity 1.015 (1.005-1.025); Urobilinogen 0.2 mg/dL (Up to 0.2)
[2023-08-08 19:56] LABS: Bacteria Negative HPF (Negative); C & S Indicated? No; Casts Negative LPF (Negative); Crystals Negative HPF (Negative); Epithelial Cells Rare HPF (Negative); Mucus Negative (Negative); RBC 0-2 HPF (0-2); WBC 0-2 HPF (0-5)
[2023-08-08] MEDS: Propranolol 20 MG TAB PO (21:07)
[2023-08-08] MEDS: Benztropine 1 MG TAB PO (21:07)
[2023-08-08] MEDS: Topiramate 100 MG TAB PO (21:07)
[2023-08-08] MEDS: Enoxaparin 40 MG/0.4 ML SYR SC (21:08)
[2023-08-08] MEDS: Atorvastatin 40 MG TAB PO (21:08)
[2023-08-08 21:53] LABS: Troponin I < 50 ng/L (<or=60)
[2023-08-08] MEDS: Topiramate 25 MG TAB PO (22:06)
[2023-08-08 23:55] VITALS: BP 102/71; PULSE 80; RESP 16; TEMP 36.5; O2SAT 95
[2023-08-09] MEDS: Normal Saline 1,000 ML 125 ML IV (01:54)
[2023-08-09 03:03] VITALS: BP 106/76; PULSE 73; RESP 18; TEMP 35.1; O2SAT 98
[2023-08-09 07:29] VITALS: BP 107/71; PULSE 71; RESP 16; TEMP 36; O2SAT 98
[2023-08-09] MEDS: ARIPiprazole 15 MG TAB PO (07:38)
[2023-08-09] MEDS: Omeprazole 20 MG CAPCR PO (07:38)
[2023-08-09] MEDS: Propranolol 20 MG TAB PO (07:38)
[2023-08-09] MEDS: Benztropine 1 MG TAB PO (07:39)
[2023-08-09] MEDS: Insulin Aspart 300 UNITS/3 ML PEN SC ×2 (07:46→11:55)
[2023-08-09] MEDS: risperiDONE 1 MG TAB 2 MG PO (08:22)
[2023-08-09] MEDS: Topiramate 100 MG TAB PO (08:22)
[2023-08-09] MEDS: Valsartan 80 MG TAB PO (08:23)
--- NOTE | 2023-08-09 08:37 | DI.US_ITS ---
APPROVED REPORT EXAM: Comprehensive 2D, Doppler, and color-flow Echocardiogram Patient Location: In-Patient Room/Bed: 210 Chief Accounting Officer: Janie El RDCS (AE) Indications: Syncope, CAD, HTN, DM Other Information Study Quality: Fair. Technically limited study due to body habitus. Conclusion Normal left ventricular wall thickness and chamber size. Ejection fraction is 50 to 55%. There are no segmental wall motion abnormalities Normal right ventricular size and systolic function Both atria are normal in size There is no structural or hemodynamically significant valvular disease Right ventricular systolic pressure could not be estimated Wall motion Left Ventricle The left ventricle is normal size. Left ventricular systolic function is borderline. There is normal left ventricular wall thickness. No segmental wall motion abnormalities There is no ventricular septa l defect visualized. LVEF is 50-55%. Right Ventricle The right ventricle is normal size. The right ventricular systolic function is normal. Atria The left atrium size is normal. The right atrium size is normal. The interatrial septum is intact wit h no evidence for an atrial septal defect. Aortic Valve The aortic valve is normal in structure. Aortic valve is trileaflet. There is no aortic valvular sten osis. No aortic regurgitation is present. Mitral Valve The mitral valve is normal in structure. No evidence of mitral valve stenosis. Trace mitral regurgita tion. Tricuspid Valve The tricuspid valve is normal in structure. There is no tricuspid valve stenosis. Trace tricuspid reg urgitation. Unable to assess PA pressure. Pulmonic Valve The pulmonary valve is normal in structure. There is no pulmonic valvular stenosis. There is no pulmo papito valvular regurgitation. Great Vessels The aortic root is normal in size. The ascending aorta is normal in size. Aortic arch is normal in ca liber. The IVC was not visualized. Pericardium There is no pericardial effusion. 2D Dimensions IVSD d PLAX 0.96 cm M: 0.6-1.2 Ao Root d 3.11 cm M: 3.1 - 3.7 LVPW d PLAX 1.01 cm M: 0.6 - 1.2 Ao Asc Diam d 3.50 cm M: 2.6 - 3.4 LVID d PLAX 5.62 cm M: 4.2 - 5.8 LVDs 4.18 cm M: 2.5 - 4.0 LV EF Teichholz 49.8 % FS 25.59 % LV EDV (Teich) 154.7 mL LV ESV (Teich) 77.7 mL M-Mode TAPSE 2.25 cm (M/F) >1.7 Auto EF LV EDV A4C 105.8 mL LV EDV A2C 134.6 mL LV EDV BP 118.9 mL LV ESV A4C 53.0 mL LV ESV A2C 65.9 mL LV ESV BP 58.5 mL LVEF(%) A4C 49.9 % LVEF(%) A2C 51.0 % LVEF(%) BP 50.8 % LV SV A4C 52.8 ml LV SV A2C 68.6 ml LV SV BP 60.4 ml LV CO A4C 3.6 L/min LV CO A2C 4.7 L/min LV CO BP 4.2 L/min HR A4C 69.10 BPM HR A2C 68.18 BPM LV EDV Index (BP) LA Volume LA Length A4C 4.7 cm LA Length A2C 5.5 cm LA Area A4C s 16.70 cm2 LA Area A2C s 19.13 cm2 LA Vol A4C A-L 50.03 mL LA Vol A2C A-L 56.36 mL LA Vol Biplane A-L 57.3 mL LA Vol/BSA A4C A-L LA Vol/BSA A2C A-L LA Vol/BSA BP A-L 23.4 mL/m2 LA Vol A4C MOD 45.2 mL LA Vol A2C MOD 51.3 mL LA Vol BP MOD 51.4 mL RA Volume RA Area A4C 11.2 cm2 RA ESV A4C (A-L) 22.0mL RA Vol/BSA A4C A-L RA Length A4C 4.9 cm RA ESV A4C (MOD) 21.2mL LV Diastology MV E' medial 0.068 (>0.07 m/s) MV E Vmax 0.52 (0.4-1.3 m/s) MV E/E' MED 7.58 (<14) MV A Vmax 0.65 (0.4-1.3 m/s) MV E' lateral 0.103 (>0.1 m/s) E/A Ratio 0.8 MV E/E' LAT 5.03 (<14) MV E' Average 0.085 m/s MV E/E'(average) 6.04 Aortic Valve AoV Vmax 1.17 m/s LVOT Vmax 1.12 m/s AoV Peak Grad 5.5 mmHg LVOT Peak Grad 5.0 mmHg AoV Area (Vmax) 3.27 cm2 LVOT VTI 0.233 m AoV VTI 0.266 m LVOT Mean Grad 2.4 mmHg AoV Mean Benjamín. 0.82 m/s LVOT SV 80.04 mL AoV Mean Grad 3.1 mmHg LVOT Diam s 2.05 cm AoV Area (VTI) 3.01 cm2 Velocity Ratio 0.96 Mitral Valve MV DT 232 (160-240 msec) MV Vmax TIPS 0.82 m/s MV Mean Grad 1.0 (<2mmHg) MV VTI 0.237 m Pulmonary Valve PV Vmax 0.98 (0.5-1.5 m/s) RVOT Vmax 0.84 m/s PV Peak Grad 3.9 mmHg RVOT Peak Gr. 2.8 mmHg PV Mean Benjamín 0.67 m/s RVOT VTI 0.179 m PV Mean Grad 2.1 mmHg RVOT Mean Gr. 1.4 mmHg Tricuspid Valve TV S' 0.14 m/s TR Vmax 2.46 m/s TR Peak Grad 24.1 mmHg
--- NOTE | 2023-08-09 09:44 | DIABASSESS_ITS ---
Date of service: 08/09/23 Time of Service: 09:30 Diabetes Note Reason for Visit: Routine Consult - Diabetes Education NOTE: Visited Mr Pérez briefly as he was not in a communicative mood. I introduced myself and pt stated they told me I can go home today - I'm not staying. I asked about breakfast this morning and pt declared I'm not eating - I'm going home. Pt was not receptive to having a conversation about his nutrition, intake, or diabetes management. I told him I could come back and he could get some rest - he replied I'm not going to fmathew rest, I'm going home! Current Estimated Nutrition Needs : 1999-2225kcals for wt loss (MSJx1.2- 225- 500kcals) 153g pro (.8g per kg of ABW) and 2500mL fluid (1mL per kcal of current requirement) Diabetes home meds include Metformin and Glipizide (on hold while admitted) and is currently on sensitive SS insulin Aspart at meals. most recent A1C was 7.5% 08/25/22 with only two recent glucose labs to view. Pt ordered appropriately for Heart Healthy, Consistent CHO diet while admitted. Will attempt to provide diabetes education at a later date/time if pt is more receptive to talking. I offered to leave pt education materials with him - he declined. Recommend getting current A1C. Time Spent in Nutritional Counseling and Treatment: 15 min
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
[2023-08-09 11:18] VITALS: BP 117/77; PULSE 70; RESP 16; TEMP 35.9; O2SAT 95
[2023-08-09 11:33] LABS: Abs Immature Grans 0.03 10^3/uL (0.0-0.06); Absolute Basophil Count 0.05 10^3/uL (0.0-0.2); Absolute Eosinophil Count 0.16 10^3/uL (0.0-0.7); Absolute Monocyte Count 0.58 10^3/uL (0.1-0.8); Basophils % 0.6; HCT 43.9 % (40.0-50.0); HGB 14.6 g/dL (13.5-17.5); Immature Grans % 0.4; Lymphocytes % 17.5; MCH 31.1 pg (27.0-33.0); MCHC 33.3 % (32.0-36.0); MCV 93 fL (80-95); Monocytes % 7.2; Neutrophils % 72.3; Platelet Count 199 10^3/uL (130-400); RDW 13.2 % (11.8-14.1); RDW-SD 44.9 fL; WBC 8.02 10^3/uL (4.4-10.8)
[2023-08-09 12:00] LABS: BUN 12 mg/dL (7-18); CREATININE 0.9 mg/dL (0.70-1.30); Calcium 9.2 mg/dL (8.5-10.1); Chloride 100 mmol/L (98-107); Estimated GFR 93.61 (mL/min/1.73m2); Glucose 323 mg/dL (74-106); Magnesium 1.7 mg/dL (1.8-2.4); Potassium 3.6 mmol/L (3.5-5.1); Sodium 136 mmol/L (136-145)
--- NOTE | 2023-08-09 13:42 | PT.INNT ---
Date of service: 08/09/23 Time of Service: 13:42 PT Notes Visit Reasons: Syncope Patient discharging home per hospitalist. No services provided for this episode of care.
--- NOTE | 2023-08-09 16:55 | CMDISCH_ITS ---
Date of service: 08/09/23 Time of Service: 16:55 LACE Index Scoring Tool Questions: Length of Stay (in days): 1 Was the patient admitted via the E.D.?: Yes Comorbidities: Diabetes w/o Complication and Any Tumor E.D. Visits: 2 Answers: Total Score: 9 Risk of Readmission: Low Risk Care Management Discharge Plan Reason for Hospitalization: syncope Discharge Plan: Daniel will be discharged home with a resumption of his community supports through the [facility] program. He will follow up with his community providers and plan of care and transport with RCT coordinated by CM. Patient/Family Education Needs: review discharge instructions, limitations, follow up plan, discuss Ask me Three' Services Needed at Discharge: Transportation
== END 2023-08-09 16:15 | disposition home or self-care (01) | DRG 312 ==
LOC: ER 17:40 → MS 17:55
PROVIDERS: Nurse Practitioner Family; Admitting Provider Family Medicine; Emergency Provider Student in an Organized Health Care Education/Training Program; PCP Nurse Practitioner Family; Visit Provider Family Medicine
DX: I95.1 Orthostatic hypotension (principal); I10 Essential (primary) hypertension; E11.65 Type 2 diabetes mellitus with hyperglycemia; E66.01 Morbid (severe) obesity due to excess calories; F20.9 Schizophrenia, unspecified; Z95.5 Presence of coronary angioplasty implant and graft; I25.10 Atherosclerotic heart disease of native coronary artery without angina pectoris; F41.9 Anxiety disorder, unspecified; E11.42 Type 2 diabetes mellitus with diabetic polyneuropathy; Z87.891 Personal history of nicotine dependence; Z85.038 Personal history of other malignant neoplasm of large intestine; Z80.42 Family history of malignant neoplasm of prostate; Z68.39 Body mass index [BMI] 39.0-39.9, adult; Z79.84 Long term (current) use of oral hypoglycemic drugs
CPT/HCPCS: 80048; 80053; 87635; 93005; 93306; 99285; J1650; 70450; 81003; 81015; 83735; 84443; 84484; 85025; 85379; 85730; 93010; 99222; 99239

== ENCOUNTER 2023-08-09 13:53 | Outpatient (RCR) | payer MEDICARE, MEDICAID, SELFPAY | END 2023-08-11 23:59 | disposition home or self-care (01) | LOC: RT 13:53 | PROVIDERS: PCP Nurse Practitioner Family; Visit Provider Nurse Practitioner Family | DX: R55 Syncope and collapse (principal) | CPT/HCPCS: 93270 ==

== ENCOUNTER 2023-09-10 07:54 | Outpatient (CLI) | payer MEDICARE, MEDICAID, SELFPAY ==
--- NOTE | 2023-09-10 09:43 | W.CARDEVENT ---
Date of service: 09/10/23 Time of Service: 09:43 Cardiac Event Recorder Referring Provider:: Manas Julien Indications:: Syncope Cardiac Event Note: This is a cardiac event monitor ordered for syncope Patient was monitored for 22 days and 19 hours Rhythm throughout was sinus with an average heart rate of 73. Minimum was 57, maximum 104 No significant dysrhythmias were seen There was no atrial fibrillation, no SVT, no high-grade AV block, no pauses greater than 3 seconds
== END 2023-09-10 07:55 | disposition home or self-care (01) ==
LOC: CARDOPNVT 07:54
PROVIDERS: PCP Nurse Practitioner Family; Visit Provider Internal Medicine Cardiovascular Disease
DX: R55 Syncope and collapse (principal)
CPT/HCPCS: 93272

== ENCOUNTER 2023-11-01 16:27 | Outpatient (REF) | payer MEDICARE, MEDICAID, SELFPAY ==
[2023-11-01 17:36] LABS: Bilirubin Negative (Negative); Blood Negative (Negative); Clarity Clear (Clear); Glucose 500 mg/dL (Negative); Ketones Trace mg/dL (Negative); Leukocyte Esterase Negative (Negative); Nitrite Negative (Negative); Specific Gravity 1.025 (1.005-1.025); Urobilinogen 0.2 mg/dL (Up to 0.2)
== END 2023-11-01 16:28 | disposition home or self-care (01) ==
LOC: LBN 16:27
PROVIDERS: PCP Nurse Practitioner Family; Visit Provider Registered Nurse
DX: R31.9 Hematuria, unspecified (principal)
CPT/HCPCS: 81003; 87086

== ENCOUNTER 2023-11-18 00:06 | Emergency (ER) | payer MEDICARE, MEDICAID, SELFPAY ==
[2023-11-18 00:06] VITALS: BP 129/91; PULSE 76; RESP 18; TEMP 37; O2SAT 96
--- NOTE | 2023-11-18 00:15 | RT.EKG_ITS ---
APPROVED REPORT Exam: Resting ECG Reason for Exam: short of breath Patient Location: E HR:75 bpm ECG Measurements Heart Rate 75 AXIS ND 193 P 19 QRSd 81 QRS 6 QT 378 T 32 QTc 422 Conclusion Sinus rhythm...normal P axis, V-rate 60- [address] segment or T wave abnormalities to suggest occlusive ME.
[2023-11-18] MEDS: Normal Saline 1,000 ML 1000 ML IV (00:35)
[2023-11-18 00:44] LABS: Abs Immature Grans 0.03 10^3/uL (0.0-0.06); Absolute Basophil Count 0.06 10^3/uL (0.0-0.2); Absolute Eosinophil Count 0.26 10^3/uL (0.0-0.7); Absolute Monocyte Count 0.59 10^3/uL (0.1-0.8); Absolute Neutrophil Count 4.29 10^3/uL (1.2-6.7); Basophils % 0.8; Eosinophils % 3.5; HCT 42.7 % (40.0-50.0); HGB 14.2 g/dL (13.5-17.5); Immature Grans % 0.4; Lymphocytes % 30.5; MCHC 33.3 % (32.0-36.0); MCV 93 fL (80-95); MPV 9.4 fL (8.0-11.0); Monocytes % 7.8; Platelet Count 221 10^3/uL (130-400); RBC 4.58 10^6/uL (4.36-5.78); RDW 13.6 % (11.8-14.1); RDW-SD 46.4 fL; WBC 7.53 10^3/uL (4.4-10.8)
--- NOTE | 2023-11-18 00:49 | W.ED.GENAD ---
HPI General Stated Complaint: GenMedical Mode of arrival: ambulatory. SHONDA: 3 Date/Time Provider Initiated Documentation: 11/18/23 00:07. Limitations to Documentation: no limitations. Information obtained by: patient and EMS. HPI Narrative: 68yo M with hx of T2DM, schizophrenia, HTN, HLD, CAD, presenting via EMS for high blood sugar. History from patient EMS. EMS called for high blood sugar, blood glucose ~ 300 at home. Takes metformin, no- insulin. Patient not sure if he has been taking his metformin. Also reports feeling somewhat lightheaded and coughing recently with mild constant chest pain. No known sick contacts. He is otherwise in his usual state of health. Related Data Home Medications Medication Instructions Recorded Confirmed propranolol 20 mg tablet 20 mg PO BID #60 tab-caps 04/23/13 08/10/23 clotrimazole-betamethasone 1 1 aubrie topical BID 02/25/16 08/10/23 %-0.05 % topical cream (Lotrisone) docusate sodium 100 mg capsule 100 mg PO DAILY 02/25/16 08/10/23 (Colace) nystatin (bulk) 500 million unit 0 unit topical QID #60 grams 05/04/17 08/10/23 powder blood-glucose meter ([employer] ##1 09/13/17 08/10/23 Ultra2 Meter kit) nystatin 100,000 unit/gram topical 1 applic topical BID Intertrigo 10/29/18 08/10/23 powder #60 grams aripiprazole 15 mg tablet (Abilify) 15 mg PO DAILY 12/19/18 08/10/23 benztropine 1 mg tablet 1 mg PO BID 12/19/18 08/10/23 risperidone 2 mg tablet (Risperdal) 2 mg PO DAILY 12/19/18 08/10/23 topiramate 100 mg tablet (Topamax) 100 mg PO DAILY 12/19/18 08/10/23 ibuprofen 200 mg tablet 200 mg PO Q6H PRN #30 tabs 12/06/20 08/10/23 blood sugar diagnostic ([employer] #100 strips 03/02/23 08/10/23 Ultra Test strips) lancets ([employer] UltraSoft #100 ea 03/02/23 08/10/23 Lancets) omeprazole 20 mg capsule,delayed 20 mg PO DAILY #90 caps 03/13/23 08/10/23 release valsartan 80 mg tablet 80 mg PO DAILY #90 tabs 04/10/23 08/10/23 atorvastatin 40 mg tablet 40 mg PO QPM #90 tabs 05/08/23 08/10/23 metformin 1,000 mg tablet 1,000 mg PO BID #180 tabs 05/08/23 08/10/23 glipizide 5 mg tablet 5 mg PO BID #180 tabs 08/06/23 08/10/23 magnesium chloride 64 mg 64 mg PO DAILY #30 tabs 08/09/23 08/10/23 (magnesium chloride) tablet,delayed release Previous Rx's Medication Instructions Recorded blood-glucose meter ([employer] ##1 09/13/17 Ultra2 Meter kit) nystatin 100,000 unit/gram topical 1 applic topical BID Intertrigo 10/29/18 powder #60 grams ibuprofen 200 mg tablet 200 mg PO Q6H PRN #30 tabs 12/06/20 blood sugar diagnostic (OneTouch #100 strips 03/02/23 Ultra Test strips) lancets ([employer] UltraSoft #100 ea 03/02/23 Lancets) omeprazole 20 mg capsule,delayed 20 mg PO DAILY #90 caps 03/13/23 release valsartan 80 mg tablet 80 mg PO DAILY #90 tabs 04/10/23 atorvastatin 40 mg tablet 40 mg PO QPM #90 tabs 05/08/23 metformin 1,000 mg tablet 1,000 mg PO BID #180 tabs 05/08/23 glipizide 5 mg tablet 5 mg PO BID #180 tabs 08/06/23 magnesium chloride 64 mg 64 mg PO DAILY #30 tabs 08/09/23 (magnesium chloride) tablet,delayed release Allergies Allergy/AdvReac Type Severity Reaction Status Date / Time venom-honey bee Allergy Intermediate Anaphylaxsi Unverified 08/08/23 17:42 s guaifenesin [From Robitussin] Allergy unknkown Unverified 08/08/23 17:41 influenza virus vaccine, Allergy unknown Unverified 08/08/23 17:41 specific [influenza virus vacc,specific] aspirin AdvReac Intermediate Nausea Unverified 08/08/23 17:41 chlorpheniramine AdvReac Intermediate NAUSEA Unverified 08/08/23 17:41 dextromethorphan AdvReac Intermediate NAUSEA Unverified 08/08/23 17:41 diphenhydramine AdvReac Intermediate NAUSEA Unverified 08/08/23 17:41 lisinopril AdvReac Intermediate Cough Verified 08/08/23 17:41 phenylephrine AdvReac Intermediate NAUSEA Unverified 08/08/23 17:41 pseudoephedrine AdvReac Intermediate NAUSEA Unverified 08/08/23 17:41 Review of Systems Narrative: see HPI PFSH All Active Problems (Updated 11/18/23 @ 01:15 by Dionna Jacobsen MD) Hyperglycemia (Acute) Diabetic peripheral neuropathy associated with type 2 diabetes mellitus (Chronic 10/18/17) Hx of malignant neoplasm of colon (Chronic) 04/06/23 - patient denies Orthostatic hypotension (Acute) Family history of colon cancer (Acute) Syncope (Acute) Medical History Cholelithiasis without obstruction (02/10/04) Edema Essential hypertension (01/26/14) Family history of diabetes mellitus Family hx of prostate cancer Hyperlipidemia Kidney stones 11/2019- just passed one Screening for colon cancer Smoker QUIT 02/13 Family History Mother Essential hypertension Heart disease Father Diabetes Sister Personal history of malignant neoplasm COLON FAMILY HISTORY Personal history of malignant neoplasm PROSTATE Other Family history of diabetes mellitus Family hx of prostate cancer Social History Smoking/Tobacco Use Status: Never Second Hand Exposure: Yes Smoking risk assessment performed?: Yes Alcohol Intake: former Drug use: Never Substance use type: does not use Caregiver/Support person: No Household members: spouse Housing: apartment Communication Needs: None Do you need help understanding health information?: Often Pets and animals: No Sexually active: No Do you think of yourself as: straight/heterosexual Current gender identity: male What is your relationship status?: How often do you talk on the phone with friends or family?: three or more times per week How often do you get together with friends or relatives?: once per week How often do you attend hinduism or yarsanism services?: decline to answer Do you belong to any clubs or organized social groups?: no Panel score (0-1 are the most socially isolated patients): 2 What type of physical activity do you participate in: walking Duration: < 15 minutes/day Frequency: daily Sri/Yarsanism: No preference Special sri needs: No Seatbelt use: always Drive intox or ride w/intox medical delivery 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 Head: Normocephalic, atraumatic Neck: Trachea midline, ?Neck supple. ENT: ?MMM.? Cardiac: ?RRR, no murmurs appreciated Resp: No respiratory distress. CTAB. Abd: ?Soft, non-distended, nontender : ?No suprapubic tenderness. Extremities: ?No deformities.? No peripheral edema. Neuro: ? GCS 15.? PERRL.? EOMI.? Fluent speech, no dysarthria. Motor- 5/5 strength symmetric bilateral upper and lower extremities Sensation- ?Intact to light touch and symmetric multiple dermatomes including upper and lower extremities Coordination- No dysmetria on finger to nose Gait/station: ?Normal stance.? No truncal ataxia. Steady gait with equal normal steps Course Vital Signs Vital signs: Vital Signs Temperature 37.0 C 11/18/23 00:06 Pulse 76 11/18/23 00:06 Respiratory Rate 18 11/18/23 00:06 Blood Pressure 129/91 H 11/18/23 00:06 Pulse Oximetry 96 11/18/23 00:06 Temperature 37.0 C 11/18/23 00:06 Temperature Source Temporal Artery Scan 11/18/23 00:06 Pulse 76 11/18/23 00:06 Respiratory Rate 18 11/18/23 00:06 Respiratory Effort Short of Breath 11/18/23 00:09 Respiratory Depth Normal 11/18/23 00:09 Respiratory Pattern Normal 11/18/23 00:09 Blood Pressure 129/91 H 11/18/23 00:06 Blood Pressure Position Supine 11/18/23 00:06 Pulse Oximetry 96 11/18/23 00:06 Oxygen Delivery Method Room Air 11/18/23 00:06 Oxygen Flow Rate 0 11/18/23 00:06 Pain Level 0 11/18/23 00:06 Medical Decision Making 68yo M with hx of T2DM, schizophrenia, HTN, HLD, CAD, presenting via EMS for high blood sugar. History from patient EMS. EMS called for high blood sugar, blood glucose ~ 300 at home. Takes metformin, no- insulin. Patient not sure if he has been taking his metformin. Also reports feeling somewhat lightheaded and coughing recently with mild constant chest pain. Vital signs and physical exam reassuring on arrival. Fingerstick blood glucose in 200's. Will eval for DKA as well as potentially life threatening etiologies of lightheadedness and chest pain (though these are not the patient's primary complaint) with EKG, CXR, labs. EKG NSR, no ST segment or T wave abnormalities to suggest occlusive [place]. No tachycardia, hypoxia, or pleuritic pain to suggest pulmonary embolism; would not pursue further with dimer or CT imaging. Labs reviewed as below, CBC & CMP reassuring, blood glucose 240's otherwise no significant abnormalities. Troponin negative. Resp viral swab negative. Subsequently notified that patient has eloped from department prior to CXR after being told he could not have a haylee michael. Unable to discuss results or recommend further care to patient prior to his departure. Lab Data Lab results reviewed: Yes I reviewed the patient's lab results. Labs: Laboratory Tests Range/Units 11/18/23 11/18/23 00:09 00:32 WBC (4.4-10.8) 10^3/uL 7.53 RBC (4.36-5.78) 10^6/uL 4.58 Hgb (13.5-17.5) g/dL 14.2 Hct (40.0-50.0) % 42.7 MCV (80-95) fL 93 MCH (27.0-33.0) pg 31.0 MCHC (32.0-36.0) % 33.3 RDW (11.8-14.1) % 13.6 Plt Count (130-400) 10^3/uL 221 MPV (8.0-11.0) fL 9.4 Immature Gran % 0.4 Neutrophils % 57.0 Lymphocytes % 30.5 Monocytes % 7.8 Eosinophils % 3.5 Basophils % 0.8 Nucleated RBC % (0.0-0.3) % 0.0 Absolute Neutrophils (1.2-6.7) 10^3/uL 4.29 Absolute Lymphocytes (1.2-3.4) 10^3/uL 2.30 Absolute Monocytes (0.1-0.8) 10^3/uL 0.59 Absolute Eosinophils (0.0-0.7) 10^3/uL 0.26 Absolute Basophils (0.0-0.2) 10^3/uL 0.06 Sodium (136-145) mmol/L 139 Potassium (3.5-5.1) mmol/L 3.8 Chloride (98-107) mmol/L 102 Carbon Dioxide (21.0-32.0) mmol/L 30.5 Anion Gap (3-11) mmol/L 6.5 BUN (7-18) mg/dL 13 Creatinine (0.70-1.30) mg/dL 0.9 Est GFR (CKD-EPI 2020) (mL/min/1.73m2) 93.03 Glucose (74-106) mg/dL 242 H Calcium (8.5-10.1) mg/dL 9.2 Total Bilirubin (0.2-1.0) mg/dL 0.4 AST (15-37) U/L 11 L ALT (16-63) U/L 30 Alkaline Phosphatase (46-116) U/L 97 Troponin I (<or=60) ng/L < 50 Total Protein (6.4-8.2) g/dL 6.7 Albumin (3.4-5.0) g/dL 3.0 L COVID-19 Source Nasopharynx SARS-CoV-2 (PCR) (Negative) Negative Influenza Type A (PCR) (Negative) Negative Influenza Type B (PCR) (Negative) Negative RSV (PCR) (Negative) Negative Quality:SDOH Health Related Social Needs: No Data to Display Discharge Plan Disposition Patient Disposition: Eloped Discharge Details Chief Complaint: GenMedical Clinical Impression: Hyperglycemia Primary Care Provider: Manas Espinosa ED Provider: Dionna Jacobsen Home Meds and New Rx's Prescriptions: No Action aripiprazole [Abilify] 15 mg tablet 15 mg PO DAILY topiramate [Topamax] 100 mg tablet 100 mg PO DAILY risperidone [Risperdal] 2 mg tablet 2 mg PO DAILY benztropine 1 mg tablet 1 mg PO BID propranolol 20 MG tablet 20 mg PO BID Qty: 60 Patient Comments: pt took all morning meds and also evening meds around noon today clotrimazole-betamethasone [Lotrisone] 45 GM cream 1 aubrie Topical BID docusate sodium [Colace] 100 MG capsule 100 mg PO DAILY Patient Comments: pt took all morning meds and also evening meds around noon today nystatin (bulk) 1 EACH powder 0 unit Topical QID Qty: 60 Rx Instructions: Apply in skin folds (DME) blood-glucose meter [[employer] Ultra2 Meter] 1 EACH kit 1 ea Miscellaneous DAILY Qty: 1 0RF nystatin 100,000 unit/gram powder 1 applic TP BID Qty: 60 3RF ibuprofen 200 mg tablet 200 mg PO Q6H PRN Qty: 30 0RF (DME) OneTouch Ultra Test Strip 1 ea Miscellaneous DAILY Qty: 100 0RF Rx Instructions: E11.9 (DME) lancets [[employer] UltraSoft Lancets] Misc 1 ea Miscellaneous DAILY Qty: 100 0RF Rx Instructions: E11.9 omeprazole 20 mg capsule,delayed release(DR/EC) 20 mg PO DAILY Qty: 90 4RF valsartan 80 mg tablet 80 mg PO DAILY Qty: 90 4RF atorvastatin 40 mg tablet 40 mg PO QPM Qty: 90 3RF metformin 1,000 mg tablet 1,000 mg PO BID Qty: 180 3RF glipizide 5 mg tablet 5 mg PO BID Qty: 180 3RF magnesium chloride 64 mg tablet,delayed release (DR/EC) 64 mg PO DAILY Qty: 30 0RF
[2023-11-18 00:57] LABS: ALT 30 U/L (16-63); AST 11 U/L (15-37); Alkaline Phosphatase 97 U/L (46-116); Anion Gap 6.5 mmol/L (3-11); BUN 13 mg/dL (7-18); Bilirubin, Total 0.4 mg/dL (0.2-1.0); CO2 30.5 mmol/L (21.0-32.0); CREATININE 0.9 mg/dL (0.70-1.30); Calcium 9.2 mg/dL (8.5-10.1); Chloride 102 mmol/L (98-107); Estimated GFR 93.03 (mL/min/1.73m2); Glucose 242 mg/dL (74-106); Potassium 3.8 mmol/L (3.5-5.1); Sodium 139 mmol/L (136-145); Total Protein 6.7 g/dL (6.4-8.2); Troponin I < 50 ng/L (<or=60)
[2023-11-18 01:03] LABS: COVID-19 PCR Negative (Negative); Influenza A PCR Negative (Negative); Influenza B PCR Negative (Negative); RSV PCR Negative (Negative)
[2023-11-18 01:06] LABS: Source Nasopharynx
--- NOTE | 2023-11-18 01:14 | NUR.NOTE ---
this nurse went into the room to check on the PT. PT states if someone doesn't get me some fucking haylee michael I'm going to leave. I informed the PT that we are waiting on his test results before he could eat or drink anything. Pt states I don't care I want haylee michael This RN asked the PT if he wanted me to remove his IV and disconnect the monitor so he can leave. The PT stated yes. PT was disconnected for monitor and IV DC. PT left AMA. Nursing Note:
== END 2023-11-18 01:11 | disposition left against medical advice (07) ==
PROVIDERS: Emergency Provider Student in an Organized Health Care Education/Training Program; PCP Nurse Practitioner Family
DX: R73.9 Hyperglycemia, unspecified (principal); E78.5 Hyperlipidemia, unspecified; I10 Essential (primary) hypertension; I25.10 Atherosclerotic heart disease of native coronary artery without angina pectoris; R42 Dizziness and giddiness; R07.9 Chest pain, unspecified; Z91.148 Patient's other noncompliance with medication regimen for other reason; Z53.29 Procedure and treatment not carried out because of patient's decision for other reasons
CPT/HCPCS: 80053; 87637; 93005; 96360; 99284; 84484; 85025; 93010; 99283

== ENCOUNTER 2023-12-05 10:08 | Outpatient (REF) | payer MEDICARE, MEDICAID, SELFPAY ==
[2023-12-05 10:32] LABS: ALT 37 U/L (16-63); AST 26 U/L (15-37); Albumin 3.1 g/dL (3.4-5.0); Alkaline Phosphatase 121 U/L (46-116); Anion Gap 11.6 mmol/L (3-11); BUN 14 mg/dL (7-18); Bilirubin, Total 0.8 mg/dL (0.2-1.0); CO2 30.4 mmol/L (21.0-32.0); Calcium 9.6 mg/dL (8.5-10.1); Calculated LDL 68 mg/dL (<100); Chloride 99 mmol/L (98-107); Cholesterol 147 mg/dL (<200); Estimated GFR 81.98 (mL/min/1.73m2); Glucose 219 mg/dL (74-106); HDL Cholesterol 32 mg/dL (40-60); Potassium 3.6 mmol/L (3.5-5.1); Sodium 141 mmol/L (136-145); Total Protein 7.2 g/dL (6.4-8.2); Triglyceride 238 mg/dL (<150)
[2023-12-05 18:57] LABS: HIV-1/2 Ag & Ab Screen Negative (Negative)
[2023-12-05 19:05] LABS: Hepatitis C Ab w Rflx HCV PCR Negative (Negative)
[2023-12-05 20:29] LABS: Estimated Average Glucose 186 mg/dL; Hemoglobin A1C 8.1 % (<5.7)
== END 2023-12-05 10:09 | disposition home or self-care (01) ==
LOC: LBN 10:08
PROVIDERS: PCP Nurse Practitioner Family; Visit Provider Nurse Practitioner Family
DX: E11.9 Type 2 diabetes mellitus without complications (principal); E78.5 Hyperlipidemia, unspecified; Z11.4 Encounter for screening for human immunodeficiency virus [HIV]; Z11.59 Encounter for screening for other viral diseases
CPT/HCPCS: 80053; 80061; 86803; 87389; 83036

== ENCOUNTER 2023-12-26 19:07 | Outpatient (REF) | payer MEDICARE, MEDICAID, SELFPAY ==
[2023-12-26 21:29] LABS: Abs Immature Grans 0.02 10^3/uL (0.0-0.06); Absolute Basophil Count 0.09 10^3/uL (0.0-0.2); Absolute Eosinophil Count 0.25 10^3/uL (0.0-0.7); Absolute Lymphocyte Count 1.75 10^3/uL (1.2-3.4); Absolute Monocyte Count 0.69 10^3/uL (0.1-0.8); Absolute Neutrophil Count 5.78 10^3/uL (1.2-6.7); Eosinophils % 2.9; HGB 14.1 g/dL (13.5-17.5); Immature Grans % 0.2; Lymphocytes % 20.4; MCH 30.6 pg (27.0-33.0); MCHC 33.6 % (32.0-36.0); MCV 91 fL (80-95); MPV 10.1 fL (8.0-11.0); Neutrophils % 67.5; Platelet Count 257 10^3/uL (130-400); RBC 4.61 10^6/uL (4.36-5.78); RDW 13.6 % (11.8-14.1); RDW-SD 45.8 fL; WBC 8.58 10^3/uL (4.4-10.8)
== END 2023-12-26 19:08 | disposition home or self-care (01) ==
LOC: NCHCN 19:07
PROVIDERS: PCP Nurse Practitioner Family; Referring Provider Nurse Practitioner Family; Visit Provider Nurse Practitioner Family
DX: R19.4 Change in bowel habit (principal)
CPT/HCPCS: 85025

== ENCOUNTER 2024-02-28 18:38 | Outpatient (CLI) | payer MEDICARE, MEDICAID, SELFPAY ==
[2024-02-28 23:12] LABS: PSA, Screening 0.9 ng/mL (<=4.5)
== END 2024-02-28 18:39 | disposition home or self-care (01) ==
LOC: LBO 18:41
PROVIDERS: PCP Nurse Practitioner Family; Visit Provider Nurse Practitioner Family
DX: R39.9 Unspecified symptoms and signs involving the genitourinary system (principal)
CPT/HCPCS: 36415; 84153

== ENCOUNTER 2024-05-30 13:52 | Emergency (ER) | payer MEDICARE, MEDICAID, SELFPAY ==
--- NOTE | 2024-05-30 13:45 | RT.EKG_ITS ---
APPROVED REPORT Exam: Resting ECG Reason for Exam: Syncope Patient Location: E HR:80 bpm ECG Measurements Heart Rate 80 AXIS WY 186 P 10 QRSd 81 QRS -2 QT 360 T 9 QTc 416 Conclusion Sinus rhythm...normal P axis, V-rate 60- 99 Low voltage, precordial leads...precordial leads <1.0mV
[2024-05-30 13:55] VITALS: BP 90/68; PULSE 84; RESP 18; TEMP 36.6; O2SAT 98
[2024-05-30 14:45] VITALS: BP 100/64; PULSE 87; RESP 16; TEMP 37.6; O2SAT 98
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
[2024-05-30 16:18] LABS: Abs Immature Grans 0.03 10^3/uL (0.0-0.06); Absolute Basophil Count 0.05 10^3/uL (0.0-0.2); Absolute Eosinophil Count 0.24 10^3/uL (0.0-0.7); Absolute Lymphocyte Count 1.58 10^3/uL (1.2-3.4); Absolute Monocyte Count 0.64 10^3/uL (0.1-0.8); Absolute Neutrophil Count 6.11 10^3/uL (1.2-6.7); Basophils % 0.6 %; Eosinophils % 2.8 %; HCT 42.4 % (40.0-50.0); HGB 14.1 g/dL (13.5-17.5); Immature Grans % 0.3 %; Lymphocytes % 18.3 %; MCH 31.1 pg (27.0-33.0); MCHC 33.3 % (32.0-36.0); MCV 94 fL (80-95); MPV 9.5 fL (8.0-11.0); Monocytes % 7.4 %; Neutrophils % 70.6 %; Platelet Count 229 10^3/uL (130-400); RBC 4.53 10^6/uL (4.36-5.78); RDW 13.5 % (11.8-14.1); RDW-SD 46.6 fL; WBC 8.65 10^3/uL (4.4-10.8)
[2024-05-30 16:38] LABS: ALT 22 U/L (16-63); AST 15 U/L (15-37); Albumin 3.1 g/dL (3.4-5.0); Alkaline Phosphatase 113 U/L (46-116); Anion Gap 10.4 mmol/L (3-11); BUN 23 mg/dL (7-18); Bilirubin, Total 0.33 mg/dL (0.2-1.0); CO2 25.6 mmol/L (21.0-32.0); CREATININE 1.1 mg/dL (0.70-1.30); Chloride 105 mmol/L (98-107); Estimated GFR 73.12 (mL/min/1.73m2); Glucose 175 mg/dL (74-106); Magnesium 1.6 mg/dL (1.8-2.4); Sodium 141 mmol/L (136-145); Total Protein 6.8 g/dL (6.4-8.2)
[2024-05-30 16:39] LABS: Troponin I < 50 ng/L (< or =60)
[2024-05-30 16:50] LABS: Hemoglobin A1C 7.4 % (<5.7)
--- NOTE | 2024-05-30 16:55 | DI.RAD_ITS ---
Exam(s) XR RIBS BI INCLUDE CHEST EXAM: XR RIBS BI INCLUDE CHEST CLINICAL HISTORY: chest discomfort after fall, dizziness TECHNIQUE: 2D digital imaging was performed. PA and lateral chest and four views of both ribs. COMPARISON: CR,XR XR CHEST 2V PA LATERAL from 08/10/[address] ABDOMEN PELVIS W from 08/20/2020 FINDINGS: Exam limited by patient body habitus. MEDIASTINUM: Aorta tortuous. HEART: Normal. PULMONARY VASCULATURE: Normal. LUNGS: Clear. PLEURAL SPACE: No pleural effusion or pneumothorax. BONE:Normal. BILATERAL RIBS: No displaced rib fractures identified. Lower ribs not well penetrated. IMPRESSION: 1. No acute pulmonary findings. 2. No gross evidence of rib fracture. DATA REPOSITORY: RADIATION DOSE DELIVERED:
[2024-05-30 17:08] LABS: Lab Add On Test DONE
[2024-05-30 17:28] LABS: NT-proBNP 323 pg/mL (<300)
[2024-05-30] MEDS: Magnesium Oxide 400 MG TAB PO (17:51)
[2024-05-30 18:54] LABS: Bilirubin Negative (Negative); Blood Negative (Negative); Clarity Clear (Clear); Glucose Negative (Negative); Ketones Trace mg/dL (Negative); Leukocyte Esterase Negative (Negative); Nitrite Negative (Negative); Specific Gravity 1.025 (1.005-1.025); Urobilinogen 0.2 mg/dL (Up to 0.2); pH 5.5 (5-8)
[2024-05-30 19:26] LABS: Troponin I < 50 ng/L (< or =60)
[2024-05-30 20:43] VITALS: BP 149/98; PULSE 78; RESP 20; TEMP 36.7; O2SAT 96
[2024-05-30 21:11] VITALS: BP 149/98; PULSE 78; RESP 20; TEMP 36.7; O2SAT 96
== END 2024-05-30 21:11 | disposition home or self-care (01) ==
PROVIDERS: Emergency Provider Nurse Practitioner Family; PCP Nurse Practitioner Family
DX: R55 Syncope and collapse (principal); I10 Essential (primary) hypertension; E78.5 Hyperlipidemia, unspecified; E11.40 Type 2 diabetes mellitus with diabetic neuropathy, unspecified; I25.10 Atherosclerotic heart disease of native coronary artery without angina pectoris; Z79.84 Long term (current) use of oral hypoglycemic drugs; Z95.5 Presence of coronary angioplasty implant and graft
CPT/HCPCS: 80053; 93005; 99284; 71046; 71110; 81003; 83036; 83735; 83880; 84484; 85025; 93010; 99283

== ENCOUNTER 2024-06-17 17:23 | Emergency (ER) | payer MEDICARE, MEDICAID, SELFPAY ==
[2024-06-17] VITALS (7 sets, daily range): BP systolic 139; BP diastolic 71; PULSE 82–98; RESP 18–22; TEMP 36.9; O2SAT 94–97
--- NOTE | 2024-06-17 17:30 | DI.CT_ITS ---
Exam(s) CT LUMBAR SPINE WO EXAM: CT LUMBAR SPINE WO CLINICAL HISTORY: pain s/p fall. TECHNIQUE: Imaging Protocol: Axial computed tomography images with coronal and sagittal reformatted images were created and reviewed COMPARISON: No exams were available for comparison FINDINGS: Bones: The last intervertebral disc space is designated the L5/S1 level for the numbering purpose of this examination. The vertebral body heights are well maintained. No significant disc space narrowing. Alignment is satisfactory. No fracture is seen. T12-L1: No disc herniations or bulges are present. L1-2: No disc herniations or bulges are present. L2-3: No disc herniations or bulges are present. L3-4: No disc herniations or bulges are present. L4-5: No disc herniations or bulges are present. Mild degenerative changes of the facet joints. L5-S1: No disc herniations or bulges are present. Moderate degenerative changes of the facet joints , greater on the left. The visualized SI joints and sacrum are will maintained. Soft Tissues: The paraspinal soft tissues are unremarkable. IMPRESSION: facet degenerative changes of the lower lumbar spine. No evidence of fracture. RADIATION DOSE DELIVERED: Total DLP DATA REPOSITORY: All CT scans at this facility are submitted to the National Radiology Data Registry (NRDR) Dose Index Registry (DIR) with the [employer] (A[employer]). RADIATION OPTIMIZATION: All CT scans at this facility use at least one of these dose optimization te chniques: automated exposure control; mA and/or kV adjustment per patient size (includes targeted exa ms where dose is matched to clinical indication); or iterative reconstruction.
--- NOTE | 2024-06-17 17:30 | RT.EKG_ITS ---
APPROVED REPORT Exam: Resting ECG Reason for Exam: syncope Patient Location: E HR:81 bpm ECG Measurements Heart Rate 81 AXIS IA 177 P 19 QRSd 82 QRS 17 QT 374 T 35 QTc 434 Conclusion Sinus rhythm...normal P axis, V-rate 60- 99 Low voltage, precordial leads...precordial leads <1.0mV
--- NOTE | 2024-06-17 17:30 | DI.RAD_ITS ---
Exam(s) XR CHEST 2V PA LATERAL EXAM: XR CHEST 2V PA LATERAL CLINICAL HISTORY: ?pneumonia TECHNIQUE: 2D digital imaging was performed. Two views. COMPARISON: CR XR KNEE RT 3V AP,LAT,MONIKA from 12/09/[address] ABDOMEN PELVIS W from 08/20/2020 CR XR RIBS BI INCLUDE CHEST from 05/30/[address] LUMBAR SPINE WO from 06/17/2024 FINDINGS: HEART: Normal size. Aorta: Not dilated. PULMONARY VASCULATURE: Normal. MEDIASTINUM: Unremarkable. LUNGS: Clear. PLEURAL SPACE: No pleural effusion or pneumothorax. BONE:Unremarkable for age. SOFT TISSUES: Unremarkable. IMPRESSION: No acute abnormality. DATA REPOSITORY: RADIATION DOSE DELIVERED:
--- NOTE | 2024-06-17 17:30 | DI.CT_ITS ---
Exam(s) CT HEAD CERVICAL SPINE WO EXAM: CT HEAD CERVICAL SPINE WO CLINICAL HISTORY: fall. TECHNIQUE: Imaging Protocol: Axial computed tomography images with coronal and sagittal reformatted images were created and reviewed COMPARISON: CT CT HEAD WO from 08/08/2023 FINDINGS: Head CT Ventricles and Extra axial spaces: Normal in size and morphology for the patient's age. Hemorrhage: None. Cerebral parenchyma: No evidence of mass or acute infarct. Midline shift: None. Brainstem/Cerebellum: Normal. Calvarium: Normal. Visualized Paranasal sinuses/Mastoids: Clear. Soft tissues: Unremarkable. Cervical Spine CT BONES: Visualization of the lower cervical vertebral bodies mildly limited by artifact. Vertebral juma dy heights are maintained. Alignment is normal. There is no evidence of acute fracture. Mild degenerative disc changes and facet degenerative changes are seen . SOFT TISSUES: No paraspinal hematoma. The airway appears intact. No pneumothorax is seen at the lung apices. IMPRESSION: Head CT: No acute abnormality. C-spine CT: Degenerative changes, no acute abnormality. RADIATION DOSE DELIVERED: Total DLP DATA REPOSITORY: All CT scans at this facility are submitted to the National Radiology Data Registry (NRDR) Dose Index Registry (DIR) with the [employer] (ACR). RADIATION OPTIMIZATION: All CT scans at this facility use at least one of these dose optimization te chniques: automated exposure control; mA and/or kV adjustment per patient size (includes targeted exa ms where dose is matched to clinical indication); or iterative reconstruction.
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
[2024-06-17] MEDS: Acetaminophen 500 MG TAB 1000 MG PO (17:45)
[2024-06-17 17:59] LABS: Abs Immature Grans 0.03 10^3/uL (0.0-0.06); Absolute Basophil Count 0.06 10^3/uL (0.0-0.2); Absolute Eosinophil Count 0.17 10^3/uL (0.0-0.7); Absolute Lymphocyte Count 1.66 10^3/uL (1.2-3.4); Absolute Monocyte Count 0.67 10^3/uL (0.1-0.8); Absolute Neutrophil Count 4.93 10^3/uL (1.2-6.7); Basophils % 0.8 %; Eosinophils % 2.3 %; HCT 43.1 % (40.0-50.0); HGB 14.3 g/dL (13.5-17.5); Immature Grans % 0.4 %; Lymphocytes % 22.1 %; MCH 31.4 pg (27.0-33.0); MCHC 33.2 % (32.0-36.0); MCV 95 fL (80-95); Monocytes % 8.9 %; Neutrophils % 65.5 %; Platelet Count 224 10^3/uL (130-400); RBC 4.56 10^6/uL (4.36-5.78); RDW 13.7 % (11.8-14.1); RDW-SD 47.8 fL; WBC 7.52 10^3/uL (4.4-10.8)
[2024-06-17 18:02] LABS: BE (Venous) 5 mmol/L (-2-3); HCO3 (Venous) 30 mmol/L (23-28); O2 Sat (Venous) 74 %; TCO2 (Venous) 27 mmol/L (24-29); pCO2 (Venous) 51 mmHg (41-51); pH (Venous) 7.38 (7.31-7.41); pO2 (Venous) 39 mmHg
--- NOTE | 2024-06-17 18:05 | NUR.NOTE ---
Nursing Note: pt becoming more apprehensive and aggressive towards this RN and CT staff. pt swearing at CT staff stating that he has scans last week and that he does not need them today. RN explained to pt that the scans are necessary because he fell and hit his head today and loss consciousness today and that his scans could be different from his last ones and could indicate a medical problem from his fall. Pt then proceeded to tell this RN that he doesnt fing need them and i dont need to be told what to do from a fing Bh. This RN told the patient that language will not be tolerated and that we are trying to help him. Dr. Naya GARSIA made aware by this RN and spoke with pt regarding the plan, pt agreeable with as he was with his previous encounter. Charge Nurse Shanthi Sims RN aware
[2024-06-17 18:28] LABS: ALT 25 U/L (16-63); AST 16 U/L (15-37); Albumin 3.1 g/dL (3.4-5.0); Alkaline Phosphatase 117 U/L (46-116); Anion Gap 4.3 mmol/L (3-11); BUN 11 mg/dL (7-18); Bilirubin, Total 0.55 mg/dL (0.2-1.0); CO2 31.7 mmol/L (21.0-32.0); CREATININE 0.9 mg/dL (0.70-1.30); Calcium 9.2 mg/dL (8.5-10.1); Chloride 105 mmol/L (98-107); Estimated GFR 93.03 (mL/min/1.73m2); Glucose 158 mg/dL (74-106); Magnesium 1.9 mg/dL (1.8-2.4); Potassium 3.8 mmol/L (3.5-5.1); Sodium 141 mmol/L (136-145); TSH (W/Ref FT4) 0.58 uIU/mL (0.36-3.74)
[2024-06-17 18:46] LABS: Troponin I < 50 ng/L (< or =60)
== END 2024-06-17 20:34 | disposition home or self-care (01) ==
PROVIDERS: Emergency Provider Emergency Medicine; PCP Nurse Practitioner Family
DX: S39.012A Strain of muscle, fascia and tendon of lower back, initial encounter (principal); R55 Syncope and collapse; R42 Dizziness and giddiness; R11.2 Nausea with vomiting, unspecified; W18.09XA Striking against other object with subsequent fall, initial encounter
CPT/HCPCS: 80053; 82805; 93005; 99284; 70450; 71046; 72125; 72131; 83735; 84443; 84484; 85025; 93010; 99283

== ENCOUNTER 2024-06-25 22:42 | Outpatient (REF) | payer MEDICARE, MEDICAID, SELFPAY ==
[2024-06-25 17:07] LABS: Bacteria Rare HPF (Negative); C & S Indicated? No; Casts Negative LPF (Negative); Crystals Rare Calcium Oxalate HPF (Negative); Epithelial Cells Few HPF (Negative); Mucus Negative (Negative); RBC 0-2 HPF (0-2); WBC 0-2 HPF (0-5)
== END 2024-06-25 22:43 | disposition home or self-care (01) ==
LOC: LBN 22:42
PROVIDERS: PCP Nurse Practitioner Family; Visit Provider Family Medicine
DX: R82.89 Other abnormal findings on cytological and histological examination of urine (principal)
CPT/HCPCS: 81015

== ENCOUNTER 2024-07-28 06:35 | Emergency (ER) | payer MEDICARE, MEDICAID, SELFPAY ==
[2024-07-28] VITALS (29 sets, daily range): BP systolic 123–145; BP diastolic 57–94; PULSE 71–92; RESP 7–20; TEMP 36.3–36.4; O2SAT 95–99
--- NOTE | 2024-07-28 06:45 | DI.CT_ITS ---
Exam(s) CT HEAD WO EXAM: CT HEAD WO CLINICAL HISTORY: syncope, hit head?. TECHNIQUE: Imaging Protocol: Axial computed tomography images with coronal and sagittal reformatted images were created and reviewed COMPARISON: CT CT HEAD CERVICAL SPINE WO from 06/17/2024 FINDINGS: There are no skull fractures. Focal mucosal thickening noted in the lateral aspect of the right maxil tanja sinus. No associated fluid level. There is no evidence of intracranial hemorrhage, mass effect, or shift of midline structures. There are no extra-axial fluid collections. The ventricles are not enlarged or shifted and there is no blo od within the ventricular system nor within the basal cisterns. IMPRESSION: No acute intracranial findings on this noninfused CT scan of the brain. RADIATION DOSE DELIVERED: 870.26mGy.cm Total DLP DATA REPOSITORY: All CT scans at this facility are submitted to the National Radiology Data Registry (NRDR) Dose Index Registry (DIR) with the [employer] ([employer]). RADIATION OPTIMIZATION: All CT scans at this facility use at least one of these dose optimization te chniques: automated exposure control; mA and/or kV adjustment per patient size (includes targeted exa ms where dose is matched to clinical indication); or iterative reconstruction.
--- NOTE | 2024-07-28 06:45 | RT.EKG_ITS ---
APPROVED REPORT Exam: Resting ECG Reason for Exam: syncope Patient Location: E HR:75 bpm ECG Measurements Heart Rate 75 AXIS OR 159 P 266 QRSd 89 QRS 24 QT 436 T [id number] QTc 487 Conclusion Second degree AV block, Mobitz II...multiple P waves Probable lateral infarct, old...Q>35mS, abnormal ST-T, V5-6 I aVL artifact. no stemi
[2024-07-28 07:09] LABS: Abs Immature Grans 0.03 10^3/uL (0.0-0.06); Absolute Basophil Count 0.06 10^3/uL (0.0-0.2); Absolute Eosinophil Count 0.15 10^3/uL (0.0-0.7); Absolute Lymphocyte Count 1.97 10^3/uL (1.2-3.4); Basophils % 0.8 %; HCT 42.7 % (40.0-50.0); HGB 13.7 g/dL (13.5-17.5); Immature Grans % 0.4 %; Lymphocytes % 25.9 %; MCH 31.1 pg (27.0-33.0); MCHC 32.1 % (32.0-36.0); MCV 97 fL (80-95); MPV 8.9 fL (8.0-11.0); Monocytes % 7.9 %; Platelet Count 236 10^3/uL (130-400); RDW 13.8 % (11.8-14.1); RDW-SD 49.9 fL; WBC 7.61 10^3/uL (4.4-10.8)
--- NOTE | 2024-07-28 07:13 | NUR.NOTE ---
pt verbally abusive while RN and Tech doing task, was given sandwich and meal tray ordered, pt refusing to answer questions, using abusive language and cursing repeatedly, on monitors but refusing BP cuff, EKG done, IV/labs, meal tray delivered.
[2024-07-28 07:30] LABS: ALT 29 U/L (16-63); AST 18 U/L (15-37); Alkaline Phosphatase 105 U/L (46-116); Anion Gap 6.1 mmol/L (3-11); BUN 28 mg/dL (7-18); Bilirubin, Total 0.54 mg/dL (0.2-1.0); CO2 28.9 mmol/L (21.0-32.0); Calcium 8.8 mg/dL (8.5-10.1); Chloride 106 mmol/L (98-107); Estimated GFR 81.98 (mL/min/1.73m2); Glucose 197 mg/dL (74-106); Magnesium 2.1 mg/dL (1.8-2.4); Potassium 3.2 mmol/L (3.5-5.1); Sodium 141 mmol/L (136-145); Total Protein 6.8 g/dL (6.4-8.2); Troponin I 4 ng/L (<or=76)
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
--- NOTE | 2024-07-28 07:45 | RT.EKG_ITS ---
APPROVED REPORT Exam: Resting ECG Reason for Exam: repeat Patient Location: E HR:69 bpm ECG Measurements Heart Rate 69 AXIS [place] 211 P 33 QRSd 83 QRS 36 QT 400 T 56 QTc 429 Conclusion Sinus rhythm...normal P axis, V-rate 60- 99 Narrow complex normal sinus rhythm at a rate of 69. First-degree AV block. QTc within normal limits . No ST segment abnormalities. No T wave inversions. T wave flattening in aVL. No acute injury pa ttern. Compared to prior dated earlier today significant artifact has resolved.
[2024-07-28] MEDS: Potassium Chloride 20 MEQ TABCR 40 MEQ PO (08:18)
[2024-07-28] MEDS: Normal Saline 1,000 ML 1000 ML IV (08:18)
--- NOTE | 2024-07-28 08:22 | DI.VRAD_ITS ---
PROCEDURE INFORMATION: Exam: CT Head Without Contrast Exam date and time: 07/28/2024 7:28 AM Age: 68 years old Clinical indication: Syncope and collapse; Patient HX: Syncope, ? hit head TECHNIQUE: Imaging protocol: Computed tomography of the head without contrast. COMPARISON: CT HEAD CERVICAL SPINE WO 06/17/2024 6:18 PM FINDINGS: Brain: No intracranial hemorrhage appreciated. No significant focal mass effect or significant midline shift. Generalized parenchymal volume loss. Chronic ischemic changes are noted. Cerebral ventricles: No disproportionate ventriculomegaly. Paranasal sinuses: Mucosal retention cyst versus polyp in the right maxillary sinus. This is incompletely imaged. Mastoid air cells: No mastoid effusion. Bones: No acute cranial vault fracture seen. Soft tissues: No acute findings. Vasculature: Arterial calcifications. IMPRESSION: 1. No acute intracranial abnormality is appreciated. 2. Nonacute findings as outlined above. Dictated and Authenticated by: Trisha Beatty MD. Ordering:TACOS Matamoros MD
--- NOTE | 2024-07-28 08:35 | ED.PROG_ITS ---
Date of service: 07/28/24 Time of Service: 08:36 Medical Decision Making I received signout on this 68-year-old male in the emergency department in the setting of near syncope. Patient was reportedly dehydrated. He is pending care management consultation as he has not had any food for the past 3 days. He has been taking his medications as prescribed. He is pending a CT scan of his head. 10:26 AM Patient had a reassuring head CT. Patient is pending a repeat troponin. He refused troponin. He had been seen by care management and I was in touch with Brooke. She reported that he was well-connected with outpatient services. She provided him with additional food. He reportedly has Meals on Wheels. His sister will drive him. Will sign him out AGAINST MEDICAL ADVICE given his refusal of repeat troponin. 1. I explained the current situation and condition to the patient. 2. I explained the recommended treatment for this condition ?repeat troponin to ensure that he does not have acute myocardial injury 3. I explained the risk of not having the recommended treatment ? heart attack syncope 4. The patient understands this information has no questions, and repeated back this information. 5. The patient states that they need to leave and will follow-up with primary care provider 6. Mental status is lucid and the patient has decision-making capacity. 7. Patient is withdrawing his consent for care Quality:SDOH Health Related Social Needs: Health related social needs risk of homeless, inadequa te housing, material hardship, food insecurity, transpo insecurity, personal safety Health related social needs details Pt has no food in his home. 3 days without food. 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 Has limited comprehension. Sign Out Sign Out Data: Sign Out Comment: Near syncope, pending CT scan of the head, mildly hypokalemic, given p.o. potassium. Last updated by Saturnino Singh DO at 07/28/24 08:09 Discharge Plan Disposition Patient Disposition: Against Medical Advice Discharge Details Clinical Impression: Near syncope Primary Care Provider: Manas Espinosa ED Provider: Mao Wilkinson Home Meds and New Rx's Prescriptions: Continued (DME) blood-glucose meter Kit 1 ea Miscellaneous DAILY Qty: 1 0RF Rx Instructions: test twice daily (DME) OneTouch Ultra Test Strip 1 ea Miscellaneous DAILY Qty: 100 4RF Rx Instructions: E11.9 metformin 750 mg tablet extended release 24 hr 750 mg PO BID Qty: 180 0RF (DME) lancets Misc 1 ea Miscellaneous DAILY Qty: 100 4RF Rx Instructions: E11.9 aripiprazole [Abilify] 15 mg tablet 15 mg PO DAILY topiramate [Topamax] 100 mg tablet 100 mg PO DAILY risperidone [Risperdal] 2 mg tablet 2 mg PO DAILY benztropine 1 mg tablet 1 mg PO BID propranolol 20 MG tablet 20 mg PO BID Qty: 60 Patient Comments: pt took all morning meds and also evening meds around noon today clotrimazole-betamethasone [Lotrisone] 45 GM cream 1 aubrie Topical BID docusate sodium [Colace] 100 MG capsule 100 mg PO DAILY Patient Comments: pt took all morning meds and also evening meds around noon today nystatin (bulk) 1 EACH powder 0 unit Topical QID Qty: 60 Rx Instructions: Apply in skin folds nystatin 100,000 unit/gram powder 1 applic TP BID Qty: 60 3RF ibuprofen 200 mg tablet 200 mg PO Q6H PRN Qty: 30 0RF omeprazole 20 mg capsule,delayed release(DR/EC) 20 mg PO DAILY Qty: 90 4RF valsartan 80 mg tablet 80 mg PO DAILY Qty: 90 4RF atorvastatin 40 mg tablet 40 mg PO QPM Qty: 90 3RF Trulicity 0.75 mg/0.5 mL pen injector 0.75 mg subcut QWEEK Qty: 1 0RF glipizide 5 mg tablet 5 mg PO BID Qty: 180 3RF magnesium chloride 64 mg tablet,delayed release (DR/EC) 64 mg PO DAILY Qty: 30 0RF Discharge Instructions Additional Instructions: You are seen in the emergency department for your episode of nearly passing out. You were advised to have a repeat blood test performed. You declined. As we discussed there is a risk of heart attack. Please follow-up with primary care provider. Your CAT scan showed no sign of any bleeding in your head.
== END 2024-07-28 10:54 | disposition left against medical advice (07) ==
PROVIDERS: Student in an Organized Health Care Education/Training Program; Emergency Provider Emergency Medicine; PCP Nurse Practitioner Family
DX: R55 Syncope and collapse (principal); E11.40 Type 2 diabetes mellitus with diabetic neuropathy, unspecified; I44.1 Atrioventricular block, second degree; Z79.84 Long term (current) use of oral hypoglycemic drugs; Z53.29 Procedure and treatment not carried out because of patient's decision for other reasons; I10 Essential (primary) hypertension
CPT/HCPCS: 00123; 80053; 82962; 93005; 96360; 96361; 99285; 70450; 83735; 84484; 85025; 93010; 99284

== ENCOUNTER 2024-08-05 17:34 | Emergency (ER) | payer MEDICARE, MEDICAID, SELFPAY ==
--- NOTE | 2024-08-05 17:30 | RT.EKG_ITS ---
APPROVED REPORT Exam: Resting ECG Reason for Exam: chest pain Patient Location: E HR:75 bpm ECG Measurements Heart Rate [address] 201 P 41 QRSd 81 QRS 60 QT 384 T 60 QTc 429 Conclusion Sinus rhythm...normal P axis, V-rate 60- 99 Ventricular premature complex...V complex w/ short R-R interval Low voltage, precordial leads...precordial leads <1.0mV
[2024-08-05 17:35] VITALS: BP 105/63; PULSE 75; RESP 15; O2SAT 97
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
[2024-08-05 18:04] LABS: Abs Immature Grans 0.03 10^3/uL (0.0-0.06); Absolute Basophil Count 0.05 10^3/uL (0.0-0.2); Absolute Eosinophil Count 0.25 10^3/uL (0.0-0.7); Absolute Lymphocyte Count 1.65 10^3/uL (1.2-3.4); Absolute Monocyte Count 0.66 10^3/uL (0.1-0.8); Absolute Neutrophil Count 3.88 10^3/uL (1.2-6.7); Basophils % 0.8 %; Eosinophils % 3.8 %; HCT 43.1 % (40.0-50.0); Immature Grans % 0.5 %; Lymphocytes % 25.3 %; MCH 31.1 pg (27.0-33.0); MCHC 32.5 % (32.0-36.0); MCV 96 fL (80-95); MPV 9.2 fL (8.0-11.0); Monocytes % 10.1 %; Neutrophils % 59.5 %; Platelet Count 217 10^3/uL (130-400); RDW 13.3 % (11.8-14.1); RDW-SD 47.8 fL; WBC 6.52 10^3/uL (4.4-10.8)
[2024-08-05 18:13] LABS: Magnesium 1.9 mg/dL (1.8-2.4)
[2024-08-05 18:30] LABS: ALT 19 U/L (16-63); AST 12 U/L (15-37); Alkaline Phosphatase 128 U/L (46-116); BUN 23 mg/dL (7-18); Bilirubin, Total 0.36 mg/dL (0.2-1.0); Calcium 8.6 mg/dL (8.5-10.1); Chloride 102 mmol/L (98-107); Estimated GFR 81.98 (mL/min/1.73m2); Glucose 194 mg/dL (74-106); Potassium 3.3 mmol/L (3.5-5.1); Sodium 138 mmol/L (136-145); Total Protein 7.1 g/dL (6.4-8.2); Troponin I 4 ng/L (<or=76)
--- NOTE | 2024-08-05 18:30 | DI.RAD_ITS ---
Exam(s) XR CHEST 2V PA LATERAL EXAM: XR CHEST 2V PA LATERAL CLINICAL HISTORY: chest pain. TECHNIQUE: 2D digital imaging was performed. COMPARISON: CR XR CHEST 2V PA LATERAL from 06/17/2024 FINDINGS: 2 views: Heart size is normal. The mediastinum is not widened. Lungs are clear. No infiltrates nor pleural effusions. IMPRESSION: No acute pulmonary findings. DATA REPOSITORY: RADIATION DOSE DELIVERED:
[2024-08-05 18:34] LABS: D-Dimer 416 ng/mlFEU (<500)
[2024-08-05 19:02] LABS: Lipase 44 U/L (16-77); NT-proBNP 128 pg/mL (<300)
[2024-08-05 20:06] LABS: Troponin I 5 ng/L (<or=76)
[2024-08-05 21:23] LABS: Troponin I 4 ng/L (<or=76)
[2024-08-05] MEDS: Erythromycin Ophth Oint 3.5 GM TUBE OD (22:26)
[2024-08-05 22:35] VITALS: RESP 18
== END 2024-08-06 01:11 | disposition home or self-care (01) ==
PROVIDERS: Emergency Provider Physician Assistant; PCP Nurse Practitioner Family
DX: R07.9 Chest pain, unspecified (principal); H10.9 Unspecified conjunctivitis; E11.40 Type 2 diabetes mellitus with diabetic neuropathy, unspecified; I10 Essential (primary) hypertension; I25.2 Old myocardial infarction; Z79.84 Long term (current) use of oral hypoglycemic drugs; Z79.85 Long-term (current) use of injectable non-insulin antidiabetic drugs
CPT/HCPCS: 36415; 80053; 83690; 93005; 99285; 71046; 83735; 83880; 84484; 85025; 85379; 93010; 99284

== ENCOUNTER 2024-09-29 13:09 | Emergency (ER) | payer MEDICARE, MEDICAID, SELFPAY ==
[2024-09-29 13:12] VITALS: BP 102/74; PULSE 88; RESP 12; TEMP 36.7; O2SAT 94
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
[2024-09-29 14:34] LABS: Abs Immature Grans 0.01 10^3/uL (0.0-0.06); Absolute Basophil Count 0.07 10^3/uL (0.0-0.2); Absolute Eosinophil Count 0.14 10^3/uL (0.0-0.7); Absolute Lymphocyte Count 1.42 10^3/uL (1.2-3.4); Absolute Monocyte Count 0.59 10^3/uL (0.1-0.8); Absolute Neutrophil Count 6.73 10^3/uL (1.2-6.7); Basophils % 0.8 %; Eosinophils % 1.6 %; HCT 45.2 % (40.0-50.0); HGB 14.7 g/dL (13.5-17.5); Immature Grans % 0.1 %; Lymphocytes % 15.8 %; MCH 31.1 pg (27.0-33.0); MCHC 32.5 % (32.0-36.0); MCV 96 fL (80-95); Monocytes % 6.6 %; Neutrophils % 75.1 %; Platelet Count 281 10^3/uL (130-400); RBC 4.72 10^6/uL (4.36-5.78); RDW 13.7 % (11.8-14.1); RDW-SD 49.1 fL; WBC 8.96 10^3/uL (4.4-10.8)
[2024-09-29 14:40] LABS: Bilirubin Negative (Negative); Blood Negative (Negative); Clarity Clear (Clear); Glucose Negative (Negative); Ketones 15 mg/dL (Negative); Leukocyte Esterase Negative (Negative); Nitrite Negative (Negative); Specific Gravity 1.015 (1.005-1.025); pH 8.5 (5-8)
[2024-09-29] MEDS: Ketorolac 15 MG/ML VIAL 10 MG IVP (14:40)
[2024-09-29] MEDS: Ondansetron 4 MG/2 ML VIAL IVP (14:40)
[2024-09-29 14:41] VITALS: BP 99/75; PULSE 83; RESP 18; TEMP 36.7; O2SAT 93
[2024-09-29 14:46] LABS: ALT 41 U/L (16-63); AST 29 U/L (15-37); Albumin 3.1 g/dL (3.4-5.0); Alkaline Phosphatase 126 U/L (46-116); Anion Gap 6.2 mmol/L (3-11); BUN 17 mg/dL (7-18); Bilirubin, Total 0.88 mg/dL (0.2-1.0); CO2 30.8 mmol/L (21.0-32.0); CREATININE 0.9 mg/dL (0.70-1.30); Calcium 9.1 mg/dL (8.5-10.1); Chloride 102 mmol/L (98-107); Estimated GFR 92.45 (mL/min/1.73m2); Glucose 170 mg/dL (74-106); Lipase 24 U/L (16-77); Potassium 4.2 mmol/L (3.5-5.1); Sodium 139 mmol/L (136-145); Total Protein 7.3 g/dL (6.4-8.2)
--- NOTE | 2024-09-29 15:29 | DI.CT_ITS ---
Exam(s) CT RENAL COLIC WO EXAM: CT RENAL COLIC WO CLINICAL HISTORY: right flank pain. TECHNIQUE: Imaging Protocol: Axial computed tomography images with coronal and sagittal reformatted images were created and reviewed. COMPARISON: CT CT ABDOMEN PELVIS W from 08/20/2020 FINDINGS: Lung Bases: No acute findings. The heart is enlarged. Tiny hiatal hernia. Liver: Normal density. No measurable mass. Gallbladder and biliary tract: Status post cholecystectomy.. No biliary ductal dilation. Pancreas: No abnormal calcifications or inflammatory process. Spleen: Normal size. Kidneys: Normal size, contour and axis.No radiodense stones or obstructive uropathy. Stable small bi lateral cysts. No follow-up recommended. No suspicious masses seen. Adrenal glands: No mass is seen. Lymph nodes: Within normal limits. Vasculature: Abdominal aorta non-dilated. Bladder:No stones. No gross wall thickening. No evidence of mass. Bowel: No obstruction. No bowel wall thickening. Very little stool. Peritoneal cavity: No ascites.No free air. No focal collection. No mesenteric inflammatory response. Reproductive organs: Within normal limits. Bones: Minimally enlarged prostate with calcifications. Soft Tissues: Within normal limits. IMPRESSION: Unremarkable CT scan of the abdomen and pelvis.No evidence of urinary tract calculi or hydronephrosis . RADIATION DOSE DELIVERED: Total DLP Total DLP DATA REPOSITORY: All CT scans at this facility are submitted to the National Radiology Data Registry (NRDR) Dose Index Registry (DIR) with the [employer] (ACR). RADIATION OPTIMIZATION: All CT scans at this facility use at least one of these dose optimization te chniques: automated exposure control; mA and/or kV adjustment per patient size (includes targeted exa ms where dose is matched to clinical indication); or iterative reconstruction.
[2024-09-29 15:35] VITALS: BP 105/73; RESP 18; O2SAT 93
[2024-09-29 16:04] VITALS: BP 105/73; RESP 18; O2SAT 93
== END 2024-09-29 16:08 | disposition home or self-care (01) ==
PROVIDERS: Emergency Medicine; Emergency Provider Emergency Medicine; PCP Nurse Practitioner Family
DX: R10.9 Unspecified abdominal pain (principal); E11.65 Type 2 diabetes mellitus with hyperglycemia; I10 Essential (primary) hypertension; Z87.442 Personal history of urinary calculi; Z59.41 Food insecurity
CPT/HCPCS: 36415; 80053; 83690; 96374; 96375; 99285; 74176; 81003; 85025; 99284; J1885; J2405

== ENCOUNTER 2024-10-07 10:28 | Emergency (ER) | payer MEDICARE, MEDICAID, SELFPAY ==
[2024-10-07] VITALS (34 sets, daily range): BP systolic 87–109; BP diastolic 62–77; PULSE 76–89; RESP 12–26; TEMP 36.2–36.8; O2SAT 95–99
--- NOTE | 2024-10-07 10:30 | DI.CT_ITS ---
Exam(s) CT ABDOMEN PELVIS W EXAM: CT ABDOMEN PELVIS W CLINICAL HISTORY: watery diarrhea, dizziness TECHNIQUE: Imaging Protocol: Axial computed tomography images with coronal and sagittal reformatted images were created and reviewed. CONTRAST MATERIAL: Intravenous: Omnipaque 350 Contrast volume:100 mL Oral: No COMPARISON: CT CT RENAL COLIC WO from 09/29/2024 FINDINGS: ABDOMEN: Lung Bases: There is mild bilateral pleural thickening again seen. There is a small paraesophageal h ernia. Liver: Normal density. No measurable mass. Portal, Superior Mesenteric, and Splenic Veins: Unremarkable. Gallbladder and Biliary Tract: Status post cholecystectomy. No biliary ductal dilatation. Pancreas: Normal density, no abnormal calcifications or inflammatory process. Spleen: Normal. Adrenals: No masses seen. Kidneys: Normal size, contour and axis. No radiodense stones or obstructive uropathy. There are bilat eral simple renal cysts. No follow-up is recommended. Abdominal Aorta: Abdominal portion non-dilated. Atherosclerotic calcification is present. Bowel: No obstruction or bowel wall thickening. No evidence of appendicitis. Peritoneal Cavity: No ascites, collection or mesenteric inflammatory response. No free air. Lymph Nodes: Within normal limits. Bones: Within normal limits for the patient's age. Soft Tissues: Unremarkable. PELVIS: Bladder: Symmetric distention, no gross wall thickening. Reproductive Organs: The prostate gland is mildly enlarged. Lymph Nodes: Within normal limits. Bones: Within normal limits for the patient's age. IMPRESSION: No acute abdominal or pelvic process. RADIATION DOSE DELIVERED: 872.69mGy.cm Total DLP DATA REPOSITORY: All CT scans at this facility are submitted to the National Radiology Data Registry (NRDR) Dose Index Registry (DIR) with the [employer] ([employer]). RADIATION OPTIMIZATION: All CT scans at this facility use at least one of these dose optimization te chniques: automated exposure control; mA and/or kV adjustment per patient size (includes targeted exa ms where dose is matched to clinical indication); or iterative reconstruction.
--- NOTE | 2024-10-07 10:30 | RT.EKG_ITS ---
APPROVED REPORT Exam: Resting ECG Reason for Exam: Low Blood Pressure Patient Location: E HR:82 bpm ECG Measurements Heart Rate 82 AXIS IN 184 P 17 QRSd 82 QRS 16 QT 379 T 35 QTc 443 Conclusion Sinus rhythm 82 normal axis no stemi
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
[2024-10-07 11:15] LABS: Abs Immature Grans 0.03 10^3/uL (0.0-0.06); Absolute Basophil Count 0.05 10^3/uL (0.0-0.2); Absolute Lymphocyte Count 1.67 10^3/uL (1.2-3.4); Absolute Monocyte Count 0.69 10^3/uL (0.1-0.8); Absolute Neutrophil Count 5.59 10^3/uL (1.2-6.7); BE (Venous) -1 mmol/L (-2-3); Basophils % 0.6 %; Eosinophils % 1.2 %; HCO3 (Venous) 25 mmol/L (23-28); HCT 47.1 % (40.0-50.0); HGB 15.3 g/dL (13.5-17.5); Immature Grans % 0.4 %; Lactate 1.8 mmol/L (0.6-1.4); Lymphocytes % 20.5 %; MCH 31.2 pg (27.0-33.0); MCHC 32.5 % (32.0-36.0); MCV 96 fL (80-95); MPV 9.4 fL (8.0-11.0); Monocytes % 8.5 %; Neutrophils % 68.8 %; O2 Sat (Venous) 55 %; Platelet Count 267 10^3/uL (130-400); RDW 13.5 % (11.8-14.1); RDW-SD 48.2 fL; TCO2 (Venous) 23 mmol/L (24-29); WBC 8.13 10^3/uL (4.4-10.8); pCO2 (Venous) 49 mmHg (41-51); pH (Venous) 7.32 (7.31-7.41); pO2 (Venous) 30 mmHg
[2024-10-07 11:33] LABS: ALT 25 U/L (16-63); AST 18 U/L (15-37); Albumin 3.7 g/dL (3.4-5.0); Alkaline Phosphatase 143 U/L (46-116); Anion Gap 11.7 mmol/L (3-11); BUN 34 mg/dL (7-18); Bilirubin, Total 1.05 mg/dL (0.2-1.0); CO2 26.3 mmol/L (21.0-32.0); CREATININE 1.3 mg/dL (0.70-1.30); Calcium 9.6 mg/dL (8.5-10.1); Chloride 104 mmol/L (98-107); Estimated GFR 59.47 (mL/min/1.73m2); Glucose 170 mg/dL (74-106); Sodium 142 mmol/L (136-145); Total Protein 8.1 g/dL (6.4-8.2)
[2024-10-07] MEDS: Normal Saline 500 ML 1000 ML IV (12:05)
[2024-10-07] MEDS: Omnipaque 350 MG/ML 100 ML BTL IJ (12:28)
[2024-10-07] MEDS: Normal Saline - Diluent 50 ML VIAL IJ (12:29)
[2024-10-07] MEDS: Ondansetron O.D.T. 4 MG TABEF, 3 TABS/BTL PO (14:11)
== END 2024-10-07 14:23 | disposition home or self-care (01) ==
PROVIDERS: Emergency Provider Nurse Practitioner Family; PCP Nurse Practitioner Family
DX: E86.0 Dehydration (principal); R19.7 Diarrhea, unspecified; R42 Dizziness and giddiness
CPT/HCPCS: 36415; 80053; 82805; 93005; 96360; 96361; 99285; 74177; 83605; 85025; 93010; 99284; J3490

== ENCOUNTER 2024-11-03 16:40 | Outpatient (REF) | payer MEDICARE, MEDICAID, SELFPAY ==
[2024-11-03 19:43] LABS: Iron 73 ug/dL (65-175); Total Iron Binding Capacity 281 ug/dL (250-450); Transferrin Sat 26 % (20-55)
[2024-11-03 20:04] LABS: Ferritin 149 ng/mL (26-388); Folate 11.1 ng/mL (8.6-20.0); TSH (W/Ref FT4) 0.09 uIU/mL (0.36-3.74); Vitamin B12 267 pg/mL (193-986)
[2024-11-03 20:27] LABS: FREE T4 1.08 ng/dL (0.76-1.46)
== END 2024-11-03 16:41 | disposition home or self-care (01) ==
LOC: LBN 16:40
PROVIDERS: PCP Nurse Practitioner Family; Visit Provider Nurse Practitioner Gerontology
DX: D52.9 Folate deficiency anemia, unspecified (principal); E55.9 Vitamin D deficiency, unspecified; D51.9 Vitamin B12 deficiency anemia, unspecified; G89.4 Chronic pain syndrome
CPT/HCPCS: 82306; 82607; 82728; 82746; 83540; 83550; 84439; 84443

== ENCOUNTER 2024-11-17 18:09 | Outpatient (REF) | payer MEDICARE, MEDICAID, SELFPAY ==
[2024-11-17 18:27] LABS: Bilirubin Negative (Negative); Blood Negative (Negative); Clarity Clear (Clear); Glucose Negative (Negative); Ketones Negative (Negative); Leukocyte Esterase Negative (Negative); Nitrite Negative (Negative); Specific Gravity <= 1.005 (1.005-1.025); Urobilinogen 0.2 mg/dL (Up to 0.2); pH 5.5 (5-8)
[2024-11-17 18:33] LABS: Abs Immature Grans 0.02 10^3/uL (0.0-0.06); Absolute Basophil Count 0.06 10^3/uL (0.0-0.2); Absolute Eosinophil Count 0.15 10^3/uL (0.0-0.7); Absolute Lymphocyte Count 2.04 10^3/uL (1.2-3.4); Absolute Monocyte Count 0.58 10^3/uL (0.1-0.8); Basophils % 0.8 %; HCT 42.3 % (40.0-50.0); HGB 14.2 g/dL (13.5-17.5); Immature Grans % 0.3 %; Lymphocytes % 27.4 %; MCH 31.8 pg (27.0-33.0); MCHC 33.6 % (32.0-36.0); MCV 95 fL (80-95); MPV 10.6 fL (8.0-11.0); Monocytes % 7.8 %; Neutrophils % 61.7 %; Platelet Count 226 10^3/uL (130-400); RBC 4.47 10^6/uL (4.36-5.78); RDW 13.7 % (11.8-14.1); RDW-SD 47.2 fL; WBC 7.45 10^3/uL (4.4-10.8)
[2024-11-17 18:52] LABS: ALT 27 U/L (16-63); AST 19 U/L (15-37); Albumin 3.1 g/dL (3.4-5.0); Alkaline Phosphatase 122 U/L (46-116); Anion Gap 7.1 mmol/L (3-11); BUN 20 mg/dL (7-18); Bilirubin, Total 0.39 mg/dL (0.2-1.0); CO2 26.9 mmol/L (21.0-32.0); Calcium 9.4 mg/dL (8.5-10.1); Chloride 107 mmol/L (98-107); Estimated GFR 81.47 (mL/min/1.73m2); Glucose 121 mg/dL (74-106); Sodium 141 mmol/L (136-145); TSH (W/Ref FT4) 0.09 uIU/mL (0.36-3.74); Total Protein 6.4 g/dL (6.4-8.2)
[2024-11-17 19:11] LABS: FREE T4 1.26 ng/dL (0.76-1.46)
[2024-11-18 18:23] LABS: PSA, Screening 0.9 ng/mL (<=4.5)
== END 2024-11-17 18:10 | disposition home or self-care (01) ==
LOC: LBN 18:09
PROVIDERS: PCP Nurse Practitioner Family; Visit Provider Nurse Practitioner Gerontology
DX: N39.0 Urinary tract infection, site not specified (principal); E03.9 Hypothyroidism, unspecified; E87.5 Hyperkalemia; R97.20 Elevated prostate specific antigen [PSA]; D50.8 Other iron deficiency anemias
CPT/HCPCS: 80053; 84153; 81003; 84439; 84443; 85025; 87086

== ENCOUNTER → 2025-03-10 11:04 | Outpatient (BNVA) | payer MEDICARE, MEDICAID, SELFPAY | PROVIDERS: PCP Nurse Practitioner Family; Referring Provider Nurse Practitioner Family; Visit Provider Nurse Practitioner Gerontology | DX: N47.1 Phimosis (principal); R39.89 Other symptoms and signs involving the genitourinary system; E66.9 Obesity, unspecified; I10 Essential (primary) hypertension; E78.5 Hyperlipidemia, unspecified; E11.9 Type 2 diabetes mellitus without complications; F20.9 Schizophrenia, unspecified | CPT/HCPCS: 99215 ==

== ENCOUNTER 2025-04-20 19:07 | Outpatient (REF) | payer MEDICARE, MEDICAID, SELFPAY ==
[2025-04-20 18:34] LABS: Abs Immature Grans 0.01 10^3/uL (0.0-0.06); Absolute Basophil Count 0.01 10^3/uL (0.0-0.2); Absolute Eosinophil Count 0.22 10^3/uL (0.0-0.7); Absolute Lymphocyte Count 2.05 10^3/uL (1.2-3.4); Absolute Neutrophil Count 2.16 10^3/uL (1.2-6.7); Basophils % 0.2 %; Eosinophils % 4.5 %; HCT 39.9 % (40.0-50.0); Immature Grans % 0.2 %; Lymphocytes % 42.3 %; MCH 31.1 pg (27.0-33.0); MCHC 32.6 % (32.0-36.0); MCV 96 fL (80-95); Monocytes % 8.2 %; Neutrophils % 44.6 %; Platelet Count 176 10^3/uL (130-400); RBC 4.18 10^6/uL (4.36-5.78); RDW-SD 46.1 fL; WBC 4.85 10^3/uL (4.4-10.8)
[2025-04-20 19:29] LABS: ALT 36 U/L (16-63); AST 22 U/L (15-37); Albumin 2.7 g/dL (3.4-5.0); Alkaline Phosphatase 87 U/L (46-116); Anion Gap 6.1 mmol/L (3-11); BUN 16 mg/dL (7-18); Bilirubin, Total 0.5 mg/dL (0.2-1.0); CO2 29.9 mmol/L (21.0-32.0); Calcium 8.6 mg/dL (8.5-10.1); Chloride 104 mmol/L (98-107); Estimated GFR 81.47 (mL/min/1.73m2); Glucose 188 mg/dL (74-106); Magnesium 1.7 mg/dL (1.8-2.4); Potassium 3.6 mmol/L (3.5-5.1); Sodium 140 mmol/L (136-145); Total Protein 6.1 g/dL (6.4-8.2); Vitamin B12 351 pg/mL (193-986)
[2025-04-21 17:29] LABS: Hemoglobin A1C 7.7 % (<5.7)
== END 2025-04-20 19:08 | disposition home or self-care (01) ==
LOC: LBN 19:07
PROVIDERS: PCP Nurse Practitioner Family; Visit Provider Nurse Practitioner Gerontology
DX: E87.8 Other disorders of electrolyte and fluid balance, not elsewhere classified (principal); E83.42 Hypomagnesemia; D51.9 Vitamin B12 deficiency anemia, unspecified; D63.1 Anemia in chronic kidney disease
CPT/HCPCS: 80053; 82607; 83036; 83735; 85025

== ENCOUNTER 2025-08-10 16:15 | Outpatient (REF) | payer MEDICARE, MEDICAID, SELFPAY ==
[2025-08-10 16:37] LABS: Abs Immature Grans 0.03 10^3/uL (0.0-0.06); HCT 41.2 % (40.0-50.0); HGB 13.8 g/dL (13.5-17.5); Immature Grans % 0.4 %; MCH 31.8 pg (27.0-33.0); MCHC 33.5 % (32.0-36.0); MCV 95 fL (80-95); MPV 10.0 fL (8.0-11.0); Platelet Count 204 10^3/uL (130-400); RBC 4.34 10^6/uL (4.36-5.78); RDW 13.0 % (11.8-14.1); RDW-SD 45.6 fL; WBC 7.57 10^3/uL (4.4-10.8)
[2025-08-10 17:01] LABS: ALT 47 U/L (16-63); AST 26 U/L (15-37); Albumin 3.1 g/dL (3.4-5.0); Alkaline Phosphatase 101 U/L (46-116); Anion Gap 11.2 mmol/L (3-11); BUN 15 mg/dL (7-18); Bilirubin, Total 0.5 mg/dL (0.2-1.0); CO2 24.8 mmol/L (21.0-32.0); Calcium 8.8 mg/dL (8.5-10.1); Chloride 102 mmol/L (98-107); Estimated GFR 92.45 (mL/min/1.73m2); Glucose 225 mg/dL (74-106); Potassium 4.0 mmol/L (3.5-5.1); Sodium 138 mmol/L (136-145); TSH (W/Ref FT4) 0.61 uIU/mL (0.36-3.74); Total Protein 6.5 g/dL (6.4-8.2)
[2025-08-10 18:49] LABS: Hemoglobin A1C 8.4 % (<5.7)
[2025-08-11 10:11] LABS: Magnesium 1.7 mg/dL (1.8-2.4)
[2025-08-11 18:14] LABS: T3,Free 3.9 pg/mL (2.8-5.3)
== END 2025-08-10 16:16 | disposition home or self-care (01) ==
LOC: LBN 16:15
PROVIDERS: PCP Nurse Practitioner Family; Visit Provider Nurse Practitioner Gerontology
DX: R73.03 Prediabetes (principal); E87.8 Other disorders of electrolyte and fluid balance, not elsewhere classified
CPT/HCPCS: 80053; 86376; 83036; 83735; 84443; 84481; 85025